=== PATIENT | female | born 1970 | race African-American/Black ===

== ENCOUNTER 2017-10-01 11:34 | Inpatient (IN) | payer MEDICARE, MEDICAID ==
[~2017-10-01] VITALS: Ht 160 cm; Wt 142.1 kg
[~2017-10-01 11:34] MED LIST: APRESOLINE10 MG ORAL; CLONIDINE0.1 MG PO; COUMADIN7.5 MG ORAL; DILTIAZEM ER300 M1 PO; DOXAZOSIN MESYLA1 MG ORAL; FLECAINIDE ACET50 M1 PO; FUROSEMIDE20 M1 ORAL; LISINOPRIL5 MG ORAL; NITROGLYCERIN0.4 MG SL
[2017-10-01 11:40] VITALS: BP 142/83
[2017-10-01] MEDS ORDERED: fentaNYL 100 mcg/2 mL IV ONE ×3 (11:45→16:15)
--- NOTE | 2017-10-01 11:53 | Emergency Room Report ---
History of Present Illness General Chief Complaint: Pain Source: Patient, EMS Present Illness HPI Patient presents with right thigh pain that began yesterday. It's been constant and worsening. She is on Coumadin. The pain is rated 10/10 at this time and a strange aching and numbness. History of sciatica and this feels different than that. She denies any trauma. She has osteoarthritis of her knee. She feels that the knee is not involved. The right side of the back is somewhat tender but doesn't seem like this is the source either. She is on Lasix and has polyuria. There is no hematuria that she's noticed. She denies any fevers or chills. No prior h/o gout. The patient also had started having some slight left sided chest pressure with the paramedics. EKG was performed that was normal. She states she had a treadmill in June which excluded CAD at this time. The patient is on Coumadin due to atrial fibrillation with mitral regurgitation. She has not had an INR checked in 8 weeks. No prior clot problems. Allergies: Coded Allergies: No Known Allergies (Unverified , 10/25/15) Patient History Past Medical History: see triage record Social History: Denies: smoking Social History Narrative at home Last Menstrual Period: 09/22/17 Now: No Reviewed Nursing Documentation: PMH: Agreed; PSxH: Agreed Nursing Documentation-PMH Hx Hypertension: Yes Hx COPD: Yes Hx Cancer: No Hx Gastrointestinal Problems: No Review of Systems All Other Systems: negative except mentioned in HPI Physical Exam Vital Signs Date Time Temp Pulse Resp B/P (MAP) Pulse Ox O2 Delivery O2 Flow Rate FiO2 10/01/17 11:29 97.6 68 16 142/83 98 Room Air 97.5 Sp02 EP Interpretation: reviewed, normal General Appearance: well appearing, no apparent distress, GCS 15, obese Head: normocephalic, atraumatic Eyes: bilateral eye normal inspection, bilateral eye PERRL, bilateral eye EOMI ENT: moist mucus membranes Neck: supple Respiratory: chest non-tender, lungs clear, normal breath sounds Cardiovascular #1: regular rate, rhythm, no edema Cardiovascular #2: 2+ radial (R) Gastrointestinal: normal inspection, normal bowel sounds, non tender, no mass, non-distended Musculoskeletal: back normal - but with tenderness R paraspinous area, no calf tenderness, pelvis stable, decreased range of motion - R hip but able to sit and stand, tender - R thigh, knee with DJD but no effusion, warmth or tenderness Neurologic: alert, oriented x3, motor strength/tone normal, DTRs symmetric, sensory intact, speech normal Psychiatric: mood/affect normal Skin: normal inspection, warm/dry Medical Decision Making Diagnostic Impression: Primary Impression: Right hip pain Additional Impressions: Gout attack Qualified Codes: M10.251 - Drug-induced gout, right hip Hyperanticoagulation Chest pain Qualified Codes: R07.9 - Chest pain, unspecified ER Course Patient presents with right thigh pain. She is on Coumadin. Differential includes DVT, spinal hematoma, hematoma in the joint, gout, muscle strain, hip strain amongst others. Depends on what her INR is whether is elevated or decreased. However she also has complaining about chest pain and needs to have evaluation with EKG, chest x-ray and labs. The complicated patient. Evaluation will include AP pelvis for the moment. If her INR is low we will perform noninvasive vascular study. If her INR is high she may have a CT of her back and hip to exclude hematoma intra-articular or spinal. Based on her exam spinal hematomas less likely. She will be treated for pain. EKG was sinus tachycardia without acute injury. Chest x-ray unremarkable. AP pelvis with inflammation in bilateral hips and some increased stool without obstruction. Labs significant for normal white count. Uric acid is elevated. INR is high. Will check CT of pelvis and lumbar spine for hematoma. Repeat fentanyl as pain not controlled. CT without hematomata. +DJD Improved but still with pain. Colchicine given. Admit tele (due to chest pain), Dr. South. Laboratory Tests Test 10/01/17 11:49 10/01/17 12:01 Urine Color Pale yellow Urine Appearance Slightly cloudy Urine pH 7 (4.5-8.0) Urine Specific [place] 1.005 (1.005-1.035) Urine Protein Negative (NEGATIVE) Urine Glucose (UA) Negative (NEGATIVE) Urine Ketones Negative (NEGATIVE) Urine Occult Blood Negative (NEGATIVE) Urine Nitrite Negative (NEGATIVE) Urine Bilirubin Negative (NEGATIVE) Urine Urobilinogen Normal MG/DL (0.0-1.0) Urine Leukocyte Esterase 1+ (NEGATIVE) H Urine RBC 0-2 /HPF (0 - 2) Urine WBC 0-2 /HPF (0 - 2) Urine Squamous Epithelial Cells Occasional /LPF Urine Bacteria Few /HPF (NONE) Urine Trichomonas Few /HPF (NONE) H White Blood Count 5.3 K/UL (4.8-10.8) Red Blood Count 4.99 M/UL (4.20-5.40) Hemoglobin 12.5 G/DL (12.0-16.0) Hematocrit 40.0 % (37.0-47.0) Mean Corpuscular Volume 80 FL (80-99) Mean Corpuscular Hemoglobin 25.0 PG (27.0-31.0) L Mean Corpuscular Hemoglobin Concent 31.3 G/DL (32.0-36.0) L Red Cell Distribution Width 17.4 % (11.6-14.8) H Platelet Count 255 K/UL (150-450) Mean Platelet Volume 9.2 FL (6.5-10.1) Neutrophils (%) (Auto) 45.1 % (45.0-75.0) Lymphocytes (%) (Auto) 40.5 % (20.0-45.0) Monocytes (%) (Auto) 10.8 % (1.0-10.0) H Eosinophils (%) (Auto) 2.6 % (0.0-3.0) Basophils (%) (Auto) 1.1 % (0.0-2.0) Erythrocyte Sedimentation Rate 57 MM/HR (0-20) H Prothrombin Time 47.5 SEC (9.30-11.50) H Prothrombin Time INR 4.9 (0.9-1.1) H Sodium Level 139 MMOL/L (136-145) Potassium Level 3.5 MMOL/L (3.5-5.1) Chloride Level 104 MMOL/L (98-107) Carbon Dioxide Level 27 MMOL/L (21-32) Anion Gap 8 mmol/L (5-15) Blood Urea Nitrogen 17 mg/dL (7-18) Creatinine 1.3 MG/DL (0.55-1.30) Estimate Glomerular Filtration Rate 53.2 mL/min (>60) Glucose Level 97 MG/DL (74-106) Uric Acid 8.1 MG/DL (2.6-7.2) H Calcium Level 8.2 MG/DL (8.5-10.1) L Total Bilirubin 0.2 MG/DL (0.2-1.0) Aspartate Amino Transferase (AST) 13 U/L (15-37) L Alanine Aminotransferase (ALT) 19 U/L (12-78) Alkaline Phosphatase 86 U/L (46-116) Total Creatine Kinase 71 U/L (26-308) Troponin I 0.000 ng/mL (0.000-0.056) Pro-B-Type Natriuretic Peptide 191 pg/mL (0-125) H Total Protein 7.6 G/DL (6.4-8.2) Albumin 2.8 G/DL (3.4-5.0) L Globulin 4.8 g/dL Albumin/Globulin Ratio 0.6 (1.0-2.7) L EKG Diagnostic Results Rate: bradycardiac Rhythm: NSR ST Segments: no acute changes Rhythm Strip Diag. Results EP Interpretation: yes Rhythm: no PVC's, no ectopy, other - Bradycardia Chest X-Ray Diagnostic Results Chest X-Ray Diagnostic Results : Chest X-Ray Ordered: Yes # of Views/Limited/Complete: 1 View Indication: Chest Pain EP Interpretation: Yes Interpretation: no consolidation, no effusion, no pneumothorax Impression: No acute disease Electronically Signed by: Electronically signed by Jordy Smith MD Other X-Ray Diagnostic Results Other X-Ray Diagnostic Results : X-Ray ordered: AP pelvis # of Views/Limited Vs Complete: 1 View Indication: Pain Interpretation: no dislocation, no soft tissue swelling, no fractures, nonspecific bowel gas Impression: Other Electronically Signed by: Electronically signed by Jordy Smith MD CT/MRI/US Diagnostic Results CT/MRI/US Diagnostic Results #1: Imaging Test Ordered: CT pelvis Impression Findings: The study is degraded on the basis of large body habitus and motion. The visualized portion of the intrapelvic contents shows no evidence of a retroperitoneal hematoma. There may be a small amount of free fluid in the pelvis which is not for certain but may be acceptable given age and sex of the patient. Uterus noted. The subcutaneous fat and visualized part of the lower abdominal muscles and musculoskeletal structures about the hip and pelvis appear symmetric and unremarkable otherwise. The L5-S1 facets appear asymmetric , prominent and with vacuum phenomena indicative of arthropathy. Vacuum phenomena and sclerosis/osteophyte formation of the sacroiliac joints also noted. Mild osteophyte formation involving the hip joints noted bilaterally. There is no acute fracture identified. There is no malalignment identified. IMPRESSION: No evidence of acute injury. No evidence of hematoma. CT/MRI/US Diagnostic Results #2: Imaging Test Ordered: CT LS spine Impression Findings: There is severe motion abnormality in the lower part of the lumbar spine limiting evaluation. There is no obvious fracture or malalignment. There is no hematoma identified. There is mild osteophyte formation and vacuum phenomenon involving the sacroiliac joints. Hypertrophied facets noted in the lower lumbar spine. IMPRESSION: Limited evaluation due to motion. No evidence of hematoma or acute injury. Mild facet arthropathy in the lower lumbar spine Last Vital Signs Date Time Temp Pulse Resp B/P (MAP) Pulse Ox O2 Delivery O2 Flow Rate FiO2 10/01/17 22:17 97.7 10/01/17 21:00 131/73 10/01/17 16:35 55 19 96 Room Air 55 Status: improved Disposition: ADMITTED INPATIENT Condition: Serious Jordy Smith M.D. Oct 01, 2017 11:53
[2017-10-01 12:17] LABS: BASOPHILS % (AUTO) 1.1 % (0.0-2.0); EOSINOPHILS % (AUTO) 2.6 % (0.0-3.0); HEMOGLOBIN 12.5 G/DL (12.0-16.0); LYMPHOCYTES % (AUTO) 40.5 % (20.0-45.0); MEAN CORPUSCULAR VOLUME 80 FL (80-99); MONOCYTES % (AUTO) 10.8 % (1.0-10.0); NEUTROPHILS % (AUTO) 45.1 % (45.0-75.0); PLATELET COUNT 255 K/UL (150-450); RED BLOOD COUNT 4.99 M/UL (4.20-5.40); RED CELL DISTRIBUTION WIDTH 17.4 % (11.6-14.8); WHITE BLOOD COUNT 5.3 K/UL (4.8-10.8)
[2017-10-01 12:22] LABS: BILIRUBIN, URINE NEGATIVE (NEGATIVE); COLOR,URINE PALE YELLOW; GLUCOSE, URINE (UA) NEGATIVE (NEGATIVE); KETONES,URINE NEGATIVE (NEGATIVE); LEUKOCYTE ESTERASE ,URINE 1+ (NEGATIVE); NITRITE,URINE NEGATIVE (NEGATIVE); PH,URINE 7 (4.5-8.0); PROTEIN,URINE NEGATIVE (NEGATIVE); UROBILINOGEN,URINE NORMAL MG/DL (0.0-1.0)
[2017-10-01 12:33] LABS: APPEARANCE,URINE SLIGHTLY CLOUDY
[2017-10-01 12:34] LABS: ANION GAP 8 mmol/L (5-15); BLOOD UREA NITROGEN 17 mg/dL (7-18); CALCIUM 8.2 MG/DL (8.5-10.1); CARBON DIOXIDE 27 MMOL/L (21-32); CHLORIDE 104 MMOL/L (98-107); CREATININE 1.3 MG/DL (0.55-1.30); POTASSIUM 3.5 MMOL/L (3.5-5.1); SODIUM 139 MMOL/L (136-145)
[2017-10-01 12:40] LABS: INR 4.9 (0.9-1.1)
[2017-10-01 12:45] LABS: ALANINE AMINOTRANSFERASE 19 U/L (12-78); ALBUMIN 2.8 G/DL (3.4-5.0); ALBUMIN/GLOBULIN RATIO 0.6 (1.0-2.7); ALKALINE PHOSPHATASE 86 U/L (46-116); ASPARTATE AMINO TRANSFERASE 13 U/L (15-37); BILIRUBIN,TOTAL 0.2 MG/DL (0.2-1.0); CREATINE KINASE 71 U/L (26-308)
[2017-10-01] MEDS ORDERED: WARFARIN SODIUM5 MG ORAL (12:57)
[2017-10-01] MEDS ORDERED: FUROSEMIDE80 M1 ORAL (12:57)
[2017-10-01] MEDS ORDERED: Isovue-300 100ml vial INJ PRN (13:15)
[2017-10-01 14:58] VITALS: BP 107/45
[2017-10-01] MEDS ORDERED: WARFARIN SODIUM10 MG ORAL (15:03)
--- NOTE | 2017-10-01 15:29 | Diagnostic Imaging Report ---
Indication: pain Pelvic trauma and pain Findings: Single AP view of the pelvis was performed. No acute fracture is identified. Bilateral hips and sacroiliac joints appear symmetric.There is no malalignment. Soft tissues are unremarkable. Impression: No acute findings.
--- NOTE | 2017-10-01 15:30 | Diagnostic Imaging Report ---
Indication: Chest pain Comparison: 10/25/2015 A single view chest radiograph was obtained. Findings: Cardiomediastinal appearance is within normal limits for age. Pulmonary vascularity is appropriate. The diaphragmatic contour is smooth and costophrenic angles are sharp. No pleural effusions are identified. The bones are unremarkable. Impression: No acute findings
--- NOTE | 2017-10-01 16:11 | Diagnostic Imaging Report ---
Indication: Back pain Technique: Continuous helical transaxial imaging of the lumbar spine was obtained from the lung bases to the pubic symphysis. No IV contrast was administered. Coronal 2-D reformats were also obtained. Study obtained in a Siemens sensation [address] Total Dose length Product (DLP): [address] Dose Index Volume (CTDIvol): 0.25, 33.6 mGy Comparison: None Findings: There is severe motion abnormality in the lower part of the lumbar spine limiting evaluation. There is no obvious fracture or malalignment. There is no hematoma identified. There is mild osteophyte formation and vacuum phenomenon involving the sacroiliac joints. Hypertrophied facets noted in the lower lumbar spine. IMPRESSION: Limited evaluation due to motion. No evidence of hematoma or acute injury. Mild facet arthropathy in the lower lumbar spine The CT scanner at [facility] is accredited by the [employer] and the scans are performed using dose optimization techniques as appropriate to a performed exam including Automatic Exposure control.
--- NOTE | 2017-10-01 16:17 | Diagnostic Imaging Report ---
Indication: Pelvic pain. Clinical concern for hematoma due to elevated INR. Technique: Continuous helical transaxial imaging of the pelvis was obtained from the iliac crest to the pubic symphysis. Coronal 2-D reformats were also obtained. Study obtained in a Siemens sensation [address] Intravenous non-ionic contrast was administered. Total Dose length Product (DLP): [address] Dose Index Volume (CTDIvol): 0.25, 32.16 mGy Comparison: None Findings: The study is degraded on the basis of large body habitus and motion. The visualized portion of the intrapelvic contents shows no evidence of a retroperitoneal hematoma. There may be a small amount of free fluid in the pelvis which is not for certain but may be acceptable given age and sex of the patient. Uterus noted. The subcutaneous fat and visualized part of the lower abdominal muscles and musculoskeletal structures about the hip and pelvis appear symmetric and unremarkable otherwise. The L5-S1 facets appear asymmetric, prominent and with vacuum phenomena indicative of arthropathy. Vacuum phenomena and sclerosis/osteophyte formation of the sacroiliac joints also noted. Mild osteophyte formation involving the hip joints noted bilaterally. There is no acute fracture identified. There is no malalignment identified. IMPRESSION: No evidence of acute injury. No evidence of hematoma. Significantly degraded study due to motion and large body habitus-related artifacts. Other incidental findings as above The CT scanner at [facility] is accredited by the [employer] and the scans are performed using dose optimization techniques as appropriate to a performed exam including Automatic Exposure control.
[2017-10-01 16:27] VITALS: BP 110/54
[2017-10-01 16:35] VITALS: BP 128/77
[2017-10-01] MEDS ORDERED: LORazepam Inj 2mg/ml 1ml IV PRN (18:30)
[2017-10-01] MEDS ORDERED: Mylanta II UD 30ml ORAL PRN (18:30)
[2017-10-01] MEDS ORDERED: Zolpidem 5mg tab ORAL PRN (18:30)
[2017-10-01] MEDS: Morphine Sulfate 2mg/ml Inj IVP PRN ×2 (18:59→23:35)
[2017-10-01 20:00] VITALS: BP 131/91
[2017-10-01] MEDS: HydrALAZINE 10mg Tab ORAL SCH (21:00)
[2017-10-01] MEDS: Miralax 17gm pkt ORAL PRN (23:35)
[2017-10-02] VITALS: BP 127/88
[2017-10-02] MEDS: Morphine Sulfate 2mg/ml Inj IVP PRN ×3 (03:41→13:15)
[2017-10-02 04:00] VITALS: BP 114/67
[2017-10-02 08:00] VITALS: BP 133/73
[2017-10-02] MEDS: Doxazosin 1mg Tab ORAL SCH (08:33)
[2017-10-02] MEDS: HydrALAZINE 10mg Tab ORAL SCH (08:34)
--- NOTE | 2017-10-02 11:21 | History and Physical ---
History of Present Illness General Date patient seen: Oct 02, 2017 Reason for Hospitalization: Pain Present Illness HPI 46 year old with hx of CHF, A-fib, morbid obesity presents with right thigh pain that began yesterday. The patient also had started having some slight left sided chest pressure with the paramedics. Pt is admitted to telemetry for further treatment. Allergies: Coded Allergies: No Known Allergies (Unverified , 10/25/15) Medication History Scheduled Diltiazem HCl (Diltiazem ER), 150 MG PO BID, (Reported) Doxazosin Mesylate* (Doxazosin Mesylate*), 1 MG ORAL DAILY, (Reported) Flecainide Acetate (Flecainide Acetate), 50 MG PO BID, (Reported) Furosemide* (Lasix*), 40 MG ORAL DAILY, (Reported) Furosemide* (Lasix*), 80 MG ORAL TWICE A WEEK, (Reported) Hydralazine HCl (Hydralazine HCl), 10 MG ORAL BID, (Reported) Lisinopril (Lisinopril*), 5 MG ORAL BID, (Reported) Warfarin Sod* (Warfarin Sod*), 5 MG ORAL ONCE A WEEK, (Reported) Warfarin Sod* (Warfarin Sod*), 10 MG ORAL DAILY, (Reported) Miscellaneous Medications Clonidine HCl (Clonidine HCl), Unknown Dose PO, (Reported) Nitroglycerin (Nitroglycerin), Unknown Dose SL, (Reported) Patient History Healthcare decision maker Resuscitation status Full Code Advanced Directive on File No Past Medical/Surgical History Past Medical/Surgical History: (1) Chronic anticoagulation (2) History of atrial fibrillation (3) Morbid obesity with BMI of 50.0-59.9, adult Review of Systems Hematologic/Lymphatic: Reports: no symptoms All Other Systems: negative except mentioned in HPI Physical Exam General Appearance: WD/WN, no apparent distress Lines, tubes and drains: peripheral HEENT: normocephalic, atraumatic Neck: non-tender, normal alignment Respiratory/Chest: chest wall non-tender, lungs clear, normal breath sounds Cardiovascular/Chest: normal peripheral pulses, normal rate Abdomen: normal bowel sounds Last 24 Hour Vital Signs Date Time Temp Pulse Resp B/P (MAP) Pulse Ox O2 Delivery O2 Flow Rate FiO2 10/02/17 08:34 131/88 10/02/17 08:00 97.1 65 18 133/73 95 Bi-pap 97.1 65 10/02/17 08:00 69 10/02/17 04:50 59 15 97 Facial 30 10/02/17 04:00 52 10/02/17 04:00 96.4 60 14 114/67 100 Bi-pap 96.4 60 10/02/17 03:54 63 17 99 Facial 30 10/02/17 02:21 60 10/02/17 01:24 60 16 98 Facial 30 10/02/17 00:08 68 23 Bi-pap 30 10/02/17 00:00 98.5 88 16 127/88 98 Bi-pap 98.5 88 10/01/17 23:30 68 23 98 Facial 30 10/01/17 22:17 97.7 10/01/17 21:00 131/73 10/01/17 20:00 98.8 96 20 131/91 100 Bi-pap 98.8 96 10/01/17 20:00 78 10/01/17 16:35 97.7 55 19 128/77 96 Room Air 97.7 55 10/01/17 16:30 98.6 60 20 110/54 100 Room Air 98.6 10/01/17 16:27 98.6 60 20 110/54 100 Room Air 98.6 10/01/17 16:14 98.0 10/01/17 14:58 98.0 59 18 107/45 98 Room Air 98.0 10/01/17 14:05 97.5 10/01/17 13:18 97.5 10/01/17 12:35 97.5 10/01/17 12:05 97.5 10/01/17 11:40 97.5 72 16 142/83 98 Room Air 97.5 10/01/17 11:29 97.6 68 16 142/83 98 Room Air 97.5 Intake and Output 10/01/17 10/02/17 19:00 07:00 Intake Total 350 ml Output Total 0 ml Balance 350 ml Other 350 ml Output Urine Total 0 ml # Voids 2 1 Laboratory Tests Test 10/01/17 11:49 10/01/17 12:01 Urine Color Pale yellow Urine Appearance Slightly cloudy Urine pH 7 (4.5-8.0) Urine Specific [place] 1.005 (1.005-1.035) Urine Protein Negative (NEGATIVE) Urine Glucose (UA) Negative (NEGATIVE) Urine Ketones Negative (NEGATIVE) Urine Occult Blood Negative (NEGATIVE) Urine Nitrite Negative (NEGATIVE) Urine Bilirubin Negative (NEGATIVE) Urine Urobilinogen Normal MG/DL (0.0-1.0) Urine Leukocyte Esterase 1+ (NEGATIVE) H Urine RBC 0-2 /HPF (0 - 2) Urine WBC 0-2 /HPF (0 - 2) Urine Squamous Epithelial Cells Occasional /LPF Urine Bacteria Few /HPF (NONE) Urine Trichomonas Few /HPF (NONE) H White Blood Count 5.3 K/UL (4.8-10.8) Red Blood Count 4.99 M/UL (4.20-5.40) Hemoglobin 12.5 G/DL (12.0-16.0) Hematocrit 40.0 % (37.0-47.0) Mean Corpuscular Volume 80 FL (80-99) Mean Corpuscular Hemoglobin 25.0 PG (27.0-31.0) L Mean Corpuscular Hemoglobin Concent 31.3 G/DL (32.0-36.0) L Red Cell Distribution Width 17.4 % (11.6-14.8) H Platelet Count 255 K/UL (150-450) Mean Platelet Volume 9.2 FL (6.5-10.1) Neutrophils (%) (Auto) 45.1 % (45.0-75.0) Lymphocytes (%) (Auto) 40.5 % (20.0-45.0) Monocytes (%) (Auto) 10.8 % (1.0-10.0) H Eosinophils (%) (Auto) 2.6 % (0.0-3.0) Basophils (%) (Auto) 1.1 % (0.0-2.0) Erythrocyte Sedimentation Rate 57 MM/HR (0-20) H Prothrombin Time 47.5 SEC (9.30-11.50) H Prothromb Time International Ratio 4.9 (0.9-1.1) H Sodium Level 139 MMOL/L (136-145) Potassium Level 3.5 MMOL/L (3.5-5.1) Chloride Level 104 MMOL/L (98-107) Carbon Dioxide Level 27 MMOL/L (21-32) Anion Gap 8 mmol/L (5-15) Blood Urea Nitrogen 17 mg/dL (7-18) Creatinine 1.3 MG/DL (0.55-1.30) Estimat Glomerular Filtration Rate 53.2 mL/min (>60) Glucose Level 97 MG/DL (74-106) Uric Acid 8.1 MG/DL (2.6-7.2) H Calcium Level 8.2 MG/DL (8.5-10.1) L Total Bilirubin 0.2 MG/DL (0.2-1.0) Aspartate Amino Transf (AST/SGOT) 13 U/L (15-37) L Alanine Aminotransferase (ALT/SGPT) 19 U/L (12-78) Alkaline Phosphatase 86 U/L (46-116) Total Creatine Kinase 71 U/L (26-308) Troponin I 0.000 ng/mL (0.000-0.056) Pro-B-Type Natriuretic Peptide 191 pg/mL (0-125) H Total Protein 7.6 G/DL (6.4-8.2) Albumin 2.8 G/DL (3.4-5.0) L Globulin 4.8 g/dL Albumin/Globulin Ratio 0.6 (1.0-2.7) L Height (Feet): 5 Height (Inches): 3.00 Weight (Pounds): 313 Medications Current Medications Medications (Trade) Dose Ordered Sig/Latrice Route PRN Reason Start Time Stop Time Status Last Admin Dose Admin Acetaminophen (Tylenol) 650 mg Q4H PRN ORAL fever (temp>100.5F) 10/01/17 18:30 10/31/17 18:29 10/01/17 22:17 Al Hydroxide/Mg Hydroxide (Mylanta II) 30 ml Q6H PRN ORAL dyspepsia 10/01/17 18:30 10/31/17 18:29 Dextrose (Dextrose 50%) 25 ml STAT PRN IV Hypoglycemia 10/01/17 18:30 10/31/17 18:29 Dextrose (Dextrose 50%) 50 ml STAT PRN IV Hypoglycemia 10/01/17 18:45 10/31/17 18:44 Doxazosin Mesylate (Cardura) 1 mg DAILY ORAL 10/02/17 09:00 11/01/17 08:59 10/02/17 08:33 Furosemide (Lasix) 40 mg DAILY ORAL 10/02/17 09:00 11/01/17 08:59 10/02/17 08:34 Hydralazine HCl (Apresoline) 10 mg Q12HR ORAL 10/01/17 21:00 10/31/17 20:59 10/02/17 08:34 Iopamidol (Isovue-300 100ml) 100 ml NOW PRN INJ Radiology Procedure 10/01/17 13:15 10/03/17 13:07 Lorazepam (Ativan 2mg/ml 1ml) 0.5 mg Q4H PRN IV For Anxiety 10/01/17 18:30 10/08/17 18:29 Morphine Sulfate (Morphine Sulfate) 1 mg Q4H PRN IVP For Pain 10/01/17 18:30 10/08/17 18:29 10/02/17 08:36 Ondansetron HCl (Zofran) 4 mg Q6H PRN IVP Nausea & Vomiting 10/01/17 18:30 10/31/17 18:29 10/02/17 03:41 Polyethylene Glycol (Miralax) 17 gm HSPRN PRN ORAL Constipation 10/01/17 18:30 10/31/17 18:29 10/01/17 23:35 Sodium Chloride 1,000 ml @ 50 mls/hr Q20H IV 10/01/17 21:45 10/31/17 21:44 10/01/17 21:45 Warfarin Sodium (Coumadin per pharmacy) 1 ea DAILY PRN MISC Per rx protocol 10/01/17 18:30 10/31/17 18:29 Zolpidem Tartrate (Ambien) 5 mg HSPRN PRN ORAL Insomnia 10/01/17 18:30 10/08/17 18:29 Assessment/Plan Problem List: (1) ACS (acute coronary syndrome) ICD Codes: I24.9 - Acute ischemic heart disease, unspecified SNOMED: 475203612 (2) History of atrial fibrillation ICD Codes: Z86.79 - Personal history of other diseases of the circulatory system SNOMED: 772904098 (3) GERD (gastroesophageal reflux disease) ICD Codes: K21.9 - Gastro-esophageal reflux disease without esophagitis SNOMED: 903244969 (4) Costochondritis ICD Codes: M94.0 - Chondrocostal junction syndrome [[place]] SNOMED: 36749500 (5) Morbid obesity with BMI of 50.0-59.9, adult ICD Codes: E66.01 - Morbid (severe) obesity due to excess calories; Z68.43 - Body mass index (BMI) 50-59.9 , adult SNOMED: 236650016 (6) Chronic anticoagulation ICD Codes: Z79.01 - group home (current) use of anticoagulants SNOMED: 472911904 Assessment/Plan serial ekg, troponin echo venous doppler cardiology to see continue pts cardiac meds. Mg South MD Oct 02, 2017 11:21
[2017-10-02 12:00] VITALS: BP 123/73
[2017-10-02 12:18] LABS: BASOPHILS % (AUTO) 0.9 % (0.0-2.0); EOSINOPHILS % (AUTO) 3.5 % (0.0-3.0); HEMATOCRIT 37.5 % (37.0-47.0); HEMOGLOBIN 11.4 G/DL (12.0-16.0); LYMPHOCYTES % (AUTO) 42.5 % (20.0-45.0); MEAN CORPUSCULAR VOLUME 80 FL (80-99); MONOCYTES % (AUTO) 11.6 % (1.0-10.0); NEUTROPHILS % (AUTO) 41.4 % (45.0-75.0); PLATELET COUNT 240 K/UL (150-450); RED CELL DISTRIBUTION WIDTH 17.7 % (11.6-14.8); WHITE BLOOD COUNT 5.7 K/UL (4.8-10.8)
[2017-10-02 12:33] LABS: INR 4.5 (0.9-1.1)
--- NOTE | 2017-10-02 12:38 | Consultation ---
History of Present Illness General Date patient seen: Oct 02, 2017 Time patient seen: 12:32 Chief Complaint: Pain Present Illness HPI BIBA due to 10/10 R leg pain with tingling and numbness radiating to the left arm with numbness noted as well. Patient also with chest pressure. Patient has a hx of CHF, A-fib, morbid obesity. Troponin normal, CXR clear. Allergies: Coded Allergies: No Known Allergies (Unverified , 10/25/15) Medication History Scheduled Diltiazem HCl (Diltiazem ER), 150 MG PO BID, (Reported) Doxazosin Mesylate* (Doxazosin Mesylate*), 1 MG ORAL DAILY, (Reported) Flecainide Acetate (Flecainide Acetate), 50 MG PO BID, (Reported) Furosemide* (Lasix*), 40 MG ORAL DAILY, (Reported) Furosemide* (Lasix*), 80 MG ORAL TWICE A WEEK, (Reported) Hydralazine HCl (Hydralazine HCl), 10 MG ORAL BID, (Reported) Lisinopril (Lisinopril*), 5 MG ORAL BID, (Reported) Warfarin Sod* (Warfarin Sod*), 5 MG ORAL ONCE A WEEK, (Reported) Warfarin Sod* (Warfarin Sod*), 10 MG ORAL DAILY, (Reported) Miscellaneous Medications Clonidine HCl (Clonidine HCl), Unknown Dose PO, (Reported) Nitroglycerin (Nitroglycerin), Unknown Dose SL, (Reported) Patient History Healthcare decision maker Resuscitation status Full Code Advanced Directive on File No Review of Systems Constitutional: Reports: no symptoms Eye: Reports: no symptoms ENT: Reports: no symptoms Respiratory: Reports: no symptoms Cardiovascular: Reports: chest pain Gastrointestinal: Reports: no symptoms Genitourinary: Reports: no symptoms Musculoskeletal: Reports: no symptoms Skin: Reports: no symptoms Psychiatric: Reports: no symptoms Neurological: Reports: no symptoms Endocrine: Reports: no symptoms Hematologic/Lymphatic: Reports: no symptoms Physical Exam General Appearance: no apparent distress Lines, tubes and drains: peripheral HEENT: normocephalic Neck: non-tender Respiratory/Chest: chest wall non-tender, lungs clear Cardiovascular/Chest: normal peripheral pulses Abdomen: normal bowel sounds Extremities: normal range of motion, non-tender Skin Exam: normal pigmentation 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 Last 24 Hour Vital Signs Date Time Temp Pulse Resp B/P (MAP) Pulse Ox O2 Delivery O2 Flow Rate FiO2 10/02/17 12:00 97.2 64 18 123/73 98 Bi-pap 97.2 64 10/02/17 08:34 131/88 10/02/17 08:00 97.1 65 18 133/73 95 Bi-pap 97.1 65 10/02/17 08:00 69 10/02/17 04:50 59 15 97 Facial 30 10/02/17 04:00 52 10/02/17 04:00 96.4 60 14 114/67 100 Bi-pap 96.4 60 10/02/17 03:54 63 17 99 Facial 30 10/02/17 02:21 60 10/02/17 01:24 60 16 98 Facial 30 10/02/17 00:08 68 23 Bi-pap 30 10/02/17 00:00 98.5 88 16 127/88 98 Bi-pap 98.5 88 10/01/17 23:30 68 23 98 Facial 30 10/01/17 22:17 97.7 10/01/17 21:00 131/73 10/01/17 20:00 98.8 96 20 131/91 100 Bi-pap 98.8 96 10/01/17 20:00 78 10/01/17 16:35 97.7 55 19 128/77 96 Room Air 97.7 55 10/01/17 16:30 98.6 60 20 110/54 100 Room Air 98.6 10/01/17 16:27 98.6 60 20 110/54 100 Room Air 98.6 10/01/17 16:14 98.0 10/01/17 14:58 98.0 59 18 107/45 98 Room Air 98.0 10/01/17 14:05 97.5 10/01/17 13:18 97.5 10/01/17 12:35 97.5 Intake and Output 10/01/17 10/02/17 19:00 07:00 Intake Total 350 ml Output Total 0 ml Balance 350 ml Other 350 ml Output Urine Total 0 ml # Voids 2 1 Laboratory Tests Test 10/02/17 11:50 White Blood Count 5.7 K/UL (4.8-10.8) Red Blood Count 4.70 M/UL (4.20-5.40) Hemoglobin 11.4 G/DL (12.0-16.0) L Hematocrit 37.5 % (37.0-47.0) Mean Corpuscular Volume 80 FL (80-99) Mean Corpuscular Hemoglobin 24.3 PG (27.0-31.0) L Mean Corpuscular Hemoglobin Concent 30.4 G/DL (32.0-36.0) L Red Cell Distribution Width 17.7 % (11.6-14.8) H Platelet Count 240 K/UL (150-450) Mean Platelet Volume 8.8 FL (6.5-10.1) Neutrophils (%) (Auto) 41.4 % (45.0-75.0) L Lymphocytes (%) (Auto) 42.5 % (20.0-45.0) Monocytes (%) (Auto) 11.6 % (1.0-10.0) H Eosinophils (%) (Auto) 3.5 % (0.0-3.0) H Basophils (%) (Auto) 0.9 % (0.0-2.0) Prothrombin Time Pending Prothromb Time International Ratio Pending Sodium Level Pending Potassium Level Pending Chloride Level Pending Carbon Dioxide Level Pending Blood Urea Nitrogen Pending Creatinine Pending Estimat Glomerular Filtration Rate Pending Glucose Level Pending Calcium Level Pending Total Bilirubin Pending Aspartate Amino Transf (AST/SGOT) Pending Alanine Aminotransferase (ALT/SGPT) Pending Alkaline Phosphatase Pending Total Protein Pending Albumin Pending Globulin Pending Triglycerides Level Pending Cholesterol Level Pending LDL Cholesterol Pending HDL Cholesterol Pending Cholesterol/HDL Ratio Pending Thyroid Stimulating Hormone (TSH) Pending Height (Feet): 5 Height (Inches): 3.00 Weight (Pounds): 313 Medications Current Medications Medications (Trade) Dose Ordered Sig/Latrice Route PRN Reason Start Time Stop Time Status Last Admin Dose Admin Acetaminophen (Tylenol) 650 mg Q4H PRN ORAL fever (temp>100.5F) 10/01/17 18:30 10/31/17 18:29 10/01/17 22:17 Al Hydroxide/Mg Hydroxide (Mylanta II) 30 ml Q6H PRN ORAL dyspepsia 10/01/17 18:30 10/31/17 18:29 Dextrose (Dextrose 50%) 25 ml STAT PRN IV Hypoglycemia 10/01/17 18:30 82/18 18:29 Dextrose (Dextrose 50%) 50 ml STAT PRN IV Hypoglycemia 10/01/17 18:45 10/31/17 18:44 Diltiazem HCl (Cardizem) 90 mg EVERY 8 HOURS ORAL 10/02/17 14:00 11/01/17 13:59 Doxazosin Mesylate (Cardura) 1 mg DAILY ORAL 10/02/17 09:00 11/01/17 08:59 10/02/17 08:33 Flecainide Acetate (Tambocor) 100 mg Q12HR ORAL 10/02/17 21:00 11/01/17 20:59 Furosemide (Lasix) 40 mg DAILY ORAL 10/02/17 09:00 11/01/17 08:59 10/02/17 08:34 Hydralazine HCl (Apresoline) 200 mg Q12HR ORAL 10/02/17 21:00 10/31/17 20:59 Iopamidol (Isovue-300 100ml) 100 ml NOW PRN INJ Radiology Procedure 10/01/17 13:15 10/03/17 13:07 Lisinopril (Prinivil) 40 mg DAILY ORAL 10/03/17 09:00 11/02/17 08:59 Lorazepam (Ativan 2mg/ml 1ml) 0.5 mg Q4H PRN IV For Anxiety 10/01/17 18:30 10/08/17 18:29 Morphine Sulfate (Morphine Sulfate) 1 mg Q4H PRN IVP For Pain 10/01/17 18:30 10/08/17 18:29 10/02/17 08:36 Ondansetron HCl (Zofran) 4 mg Q6H PRN IVP Nausea & Vomiting 10/01/17 18:30 10/31/17 18:29 10/02/17 03:41 Polyethylene Glycol (Miralax) 17 gm HSPRN PRN ORAL Constipation 10/01/17 18:30 10/31/17 18:29 10/01/17 23:35 Sodium Chloride 1,000 ml @ 50 mls/hr Q20H IV 10/01/17 21:45 10/31/17 21:44 10/01/17 21:45 Warfarin Sodium (Coumadin per pharmacy) 1 ea DAILY PRN MISC Per rx protocol 10/01/17 18:30 10/31/17 18:29 Zolpidem Tartrate (Ambien) 5 mg HSPRN PRN ORAL Insomnia 10/01/17 18:30 10/08/17 18:29 Assessment/Plan Status: stable Assessment/Plan Assessment/Plan Problem List: (1) ACS (acute coronary syndrome) ICD Codes: I24.9 - Acute ischemic heart disease, unspecified SNOMED: 612570162 (2) History of atrial fibrillation ICD Codes: Z86.79 - Personal history of other diseases of the circulatory system SNOMED: 480134776 (3) GERD (gastroesophageal reflux disease) ICD Codes: K21.9 - Gastro-esophageal reflux disease without esophagitis SNOMED: 482393666 (4) Costochondritis ICD Codes: M94.0 - Chondrocostal junction syndrome [Tietze] SNOMED: 09221277 (5) Morbid obesity with BMI of 50.0-59.9, adult ICD Codes: E66.01 - Morbid (severe) obesity due to excess calories; Z68.43 - Body mass index (BMI) 50-59.9 , adult SNOMED: 609126323 (6) Chronic anticoagulation ICD Codes: Z79.01 - [facility] (current) use of anticoagulants SNOMED: 071910825 Recommendations/Plan 1) Obtain 2D echo 2) Serial EKG/Troponin 3) Aspirin 4) Statin 5) nitro prn CP 6) No evidence of ACS at this time 7) outpatient stress test 8) All labs and imaging reviewed 9) continue coumain for AFIB 10) Continue maintenance lasix 11) maintain current medications Jordy Dean M.D. Oct 02, 2017 12:38
[2017-10-02 12:46] LABS: ALANINE AMINOTRANSFERASE 18 U/L (12-78); ALBUMIN 2.7 G/DL (3.4-5.0); ALBUMIN/GLOBULIN RATIO 0.6 (1.0-2.7); ALKALINE PHOSPHATASE 88 U/L (46-116); ANION GAP 6 mmol/L (5-15); ASPARTATE AMINO TRANSFERASE 14 U/L (15-37); BILIRUBIN,TOTAL 0.2 MG/DL (0.2-1.0); BLOOD UREA NITROGEN 20 mg/dL (7-18); CALCIUM 8.1 MG/DL (8.5-10.1); CARBON DIOXIDE 26 MMOL/L (21-32); CHLORIDE 105 MMOL/L (98-107); CHOLESTEROL 180 MG/DL (< 200); CREATININE 1.3 MG/DL (0.55-1.30); HDL CHOLESTEROL 39 MG/DL (40-60); POTASSIUM 3.7 MMOL/L (3.5-5.1); SODIUM 137 MMOL/L (136-145); TRIGLYCERIDES 171 MG/DL (30-150)
[2017-10-02] MEDS: dilTIAZem HCl 90mg tab ORAL SCH ×2 (13:14→21:34)
[2017-10-02 15:37] VITALS: BP 131/78
[2017-10-02 20:00] VITALS: BP 130/83
[2017-10-02] MEDS: HydrALAZINE 50mg tab ORAL SCH (21:33)
[2017-10-02] MEDS: Morphine Sulfate 4mg/ml Inj IVP PRN (21:34)
[2017-10-02] MEDS: Miralax 17gm pkt ORAL PRN (21:47)
[2017-10-03] VITALS: BP 134/73
[2017-10-03 04:00] VITALS: BP 129/50
[2017-10-03] MEDS: Morphine Sulfate 4mg/ml Inj IVP PRN ×3 (06:48→22:11)
[2017-10-03] MEDS: dilTIAZem HCl 90mg tab ORAL SCH ×3 (06:48→22:11)
[2017-10-03 08:00] VITALS: BP 143/72
[2017-10-03 08:59] LABS: BASOPHILS % (AUTO) 0.7 % (0.0-2.0); EOSINOPHILS % (AUTO) 4.3 % (0.0-3.0); HEMATOCRIT 35.4 % (37.0-47.0); HEMOGLOBIN 10.8 G/DL (12.0-16.0); LYMPHOCYTES % (AUTO) 46.3 % (20.0-45.0); MEAN CORPUSCULAR VOLUME 80 FL (80-99); MONOCYTES % (AUTO) 9.1 % (1.0-10.0); NEUTROPHILS % (AUTO) 39.6 % (45.0-75.0); PLATELET COUNT 229 K/UL (150-450); RED BLOOD COUNT 4.42 M/UL (4.20-5.40); RED CELL DISTRIBUTION WIDTH 17.7 % (11.6-14.8); WHITE BLOOD COUNT 6.1 K/UL (4.8-10.8)
[2017-10-03] MEDS: HydrALAZINE 50mg tab ORAL SCH ×2 (09:02→22:12)
[2017-10-03] MEDS: Doxazosin 1mg Tab ORAL SCH (09:03)
[2017-10-03] MEDS: Lisinopril 20mg tab ORAL SCH (09:03)
[2017-10-03 09:17] LABS: ALANINE AMINOTRANSFERASE 16 U/L (12-78); ALBUMIN 2.4 G/DL (3.4-5.0); ALBUMIN/GLOBULIN RATIO 0.6 (1.0-2.7); ALKALINE PHOSPHATASE 74 U/L (46-116); ANION GAP 7 mmol/L (5-15); ASPARTATE AMINO TRANSFERASE 11 U/L (15-37); BILIRUBIN,TOTAL 0.2 MG/DL (0.2-1.0); BLOOD UREA NITROGEN 19 mg/dL (7-18); CALCIUM 7.6 MG/DL (8.5-10.1); CARBON DIOXIDE 26 MMOL/L (21-32); CHLORIDE 105 MMOL/L (98-107); CREATININE 1.3 MG/DL (0.55-1.30); POTASSIUM 3.5 MMOL/L (3.5-5.1); SODIUM 138 MMOL/L (136-145)
--- NOTE | 2017-10-03 10:16 | Diagnostic Imaging Report ---
Indication: Chest pain, dyspnea Technique: XRAY Chest 1v Comparison: 10/01/2017 Findings: Heart size and mediastinal contours are stable. There is no focal airspace consolidation, pleural effusion or pneumothorax. Osseous structures are stable. Impression: No significant interval change compared to exam 10/01/2017. No new consolidation.
--- NOTE | 2017-10-03 10:39 | Cardiology Progress Note ---
Assessment/Plan Status: stable Assessment/Plan Assessment/Plan Problem List: (1) ACS (acute coronary syndrome) ICD Codes: I24.9 - Acute ischemic heart disease, unspecified SNOMED: 845932266 (2) History of atrial fibrillation ICD Codes: Z86.79 - Personal history of other diseases of the circulatory system SNOMED: 581841218 (3) GERD (gastroesophageal reflux disease) ICD Codes: K21.9 - Gastro-esophageal reflux disease without esophagitis SNOMED: 717233669 (4) Costochondritis ICD Codes: M94.0 - Chondrocostal junction syndrome [Tietze] SNOMED: 88571984 (5) Morbid obesity with BMI of 50.0-59.9, adult ICD Codes: E66.01 - Morbid (severe) obesity due to excess calories; Z68.43 - Body mass index (BMI) 50-59.9 , adult SNOMED: 455373068 (6) Chronic anticoagulation ICD Codes: Z79.01 - [facility] (current) use of anticoagulants SNOMED: 563416271 Recommendations/Plan 1) Echocardiogram reviewed, normal LV function 2) No evidence of ACS 3) Continue aspirin 4) Continue Statin 5) nitro prn CP 6) Discussed weight loss and CPAP compliance 7) outpatient stress test 8) All labs and imaging reviewed 9) continue coumain for AFIB 10) Continue maintenance lasix 11) maintain current BP medications 12) Outpatient bariatric consult Subjective Cardiovascular: Reports: no symptoms Respiratory: Reports: no symptoms Gastrointestinal/Abdominal: Reports: no symptoms Genitourinary: Reports: no symptoms Subjective No acute events, no distress no chest pain. CXR is clear, vitals stable, Echo normal LV function Objective Last 24 Hour Vital Signs Date Time Temp Pulse Resp B/P (MAP) Pulse Ox O2 Delivery O2 Flow Rate FiO2 10/03/17 09:03 143/72 10/03/17 09:02 143/72 10/03/17 08:00 97.5 71 19 143/72 95 Room Air 97.5 71 10/03/17 07:39 65 10/03/17 06:48 51 129/50 10/03/17 05:23 94 21 10/03/17 04:00 51 10/03/17 04:00 97.2 59 17 129/50 95 97.2 59 10/03/17 03:22 64 16 95 Facial 30 10/03/17 00:47 60 17 96 Facial 30 10/03/17 00:00 97.7 67 16 134/73 95 97.7 67 10/03/17 00:00 69 10/02/17 23:33 62 18 94 Facial 30 10/02/17 22:02 60 16 95 Facial 30 10/02/17 21:34 82 130/83 10/02/17 21:33 130/83 10/02/17 20:00 98.2 82 18 130/83 94 Room Air 98.2 82 10/02/17 20:00 70 10/02/17 16:00 62 10/02/17 15:37 97.6 75 18 131/78 96 Bi-pap 97.6 75 10/02/17 13:14 64 123/73 10/02/17 12:00 68 10/02/17 12:00 97.2 64 18 123/73 98 Bi-pap 97.2 64 General Appearance: no apparent distress EENT: normal ENT inspection Neck: normal alignment Rhythm: NSR Cardiovascular: normal peripheral pulses Respiratory/Chest: chest wall non-tender Abdomen: normal bowel sounds Extremities: normal range of motion Neurologic: monotyper II-XII grossly normal Intake and Output 10/02/17 10/03/17 19:00 07:00 Intake Total 1240 ml Balance 1240 ml Intake Oral 840 ml IV Total 400 ml # Voids 3 2 Laboratory Tests Test 10/02/17 11:50 10/03/17 08:15 White Blood Count 5.7 K/UL (4.8-10.8) 6.1 K/UL (4.8-10.8) Red Blood Count 4.70 M/UL (4.20-5.40) 4.42 M/UL (4.20-5.40) Hemoglobin 11.4 G/DL (12.0-16.0) L 10.8 G/DL (12.0-16.0) L Hematocrit 37.5 % (37.0-47.0) 35.4 % (37.0-47.0) L Mean Corpuscular Volume 80 FL (80-99) 80 FL (80-99) Mean Corpuscular Hemoglobin 24.3 PG (27.0-31.0) L 24.3 PG (27.0-31.0) L Mean Corpuscular Hemoglobin Concent 30.4 G/DL (32.0-36.0) L 30.4 G/DL (32.0-36.0) L Red Cell Distribution Width 17.7 % (11.6-14.8) H 17.7 % (11.6-14.8) H Platelet Count 240 K/UL (150-450) 229 K/UL (150-450) Mean Platelet Volume 8.8 FL (6.5-10.1) 8.8 FL (6.5-10.1) Neutrophils (%) (Auto) 41.4 % (45.0-75.0) L 39.6 % (45.0-75.0) L Lymphocytes (%) (Auto) 42.5 % (20.0-45.0) 46.3 % (20.0-45.0) H Monocytes (%) (Auto) 11.6 % (1.0-10.0) H 9.1 % (1.0-10.0) Eosinophils (%) (Auto) 3.5 % (0.0-3.0) H 4.3 % (0.0-3.0) H Basophils (%) (Auto) 0.9 % (0.0-2.0) 0.7 % (0.0-2.0) Prothrombin Time 43.6 SEC (9.30-11.50) H 29.4 SEC (9.30-11.50) H Prothromb Time International Ratio 4.5 (0.9-1.1) H 3.0 (0.9-1.1) H Sodium Level 137 MMOL/L (136-145) 138 MMOL/L (136-145) Potassium Level 3.7 MMOL/L (3.5-5.1) 3.5 MMOL/L (3.5-5.1) Chloride Level 105 MMOL/L (98-107) 105 MMOL/L (98-107) Carbon Dioxide Level 26 MMOL/L (21-32) 26 MMOL/L (21-32) Anion Gap 6 mmol/L (5-15) 7 mmol/L (5-15) Blood Urea Nitrogen 20 mg/dL (7-18) H 19 mg/dL (7-18) H Creatinine 1.3 MG/DL (0.55-1.30) 1.3 MG/DL (0.55-1.30) Estimat Glomerular Filtration Rate 53.2 mL/min (>60) 53.2 mL/min (>60) Glucose Level 100 MG/DL (74-106) 138 MG/DL (74-106) H Calcium Level 8.1 MG/DL (8.5-10.1) L 7.6 MG/DL (8.5-10.1) L Total Bilirubin 0.2 MG/DL (0.2-1.0) 0.2 MG/DL (0.2-1.0) Aspartate Amino Transf (AST/SGOT) 14 U/L (15-37) L 11 U/L (15-37) L Alanine Aminotransferase (ALT/SGPT) 18 U/L (12-78) 16 U/L (12-78) Alkaline Phosphatase 88 U/L (46-116) 74 U/L (46-116) Total Protein 7.1 G/DL (6.4-8.2) 6.5 G/DL (6.4-8.2) Albumin 2.7 G/DL (3.4-5.0) L 2.4 G/DL (3.4-5.0) L Globulin 4.4 g/dL 4.1 g/dL Albumin/Globulin Ratio 0.6 (1.0-2.7) L 0.6 (1.0-2.7) L Triglycerides Level 171 MG/DL (30-150) H Cholesterol Level 180 MG/DL (< 200) LDL Cholesterol 118 mg/dL (<100) H HDL Cholesterol 39 MG/DL (40-60) L Cholesterol/HDL Ratio 4.6 (3.3-4.4) H Thyroid Stimulating Hormone (TSH) 1.428 uiU/mL (0.358-3.740) Pro-B-Type Natriuretic Peptide 198 pg/mL (0-125) H Jordy Dean M.D. Oct 03, 2017 10:39
[2017-10-03 12:00] VITALS: BP 128/73
--- NOTE | 2017-10-03 12:45 | Pulmonology Progress Note ---
Assessment/Plan Problems: (1) ACS (acute coronary syndrome) (2) History of atrial fibrillation (3) GERD (gastroesophageal reflux disease) (4) Costochondritis (5) Morbid obesity with BMI of 50.0-59.9, adult (6) Chronic anticoagulation Assessment/Plan Pain management MRI of L spine cardio to follow for chest pain symptomatic treatment Subjective ROS Limited/Unobtainable: No Constitutional: Reports: no symptoms HEENT: Repors: no symptoms Respiratory: Reports: no symptoms Allergies: Coded Allergies: No Known Allergies (Unverified , 10/25/15) Objective Last 24 Hour Vital Signs Date Time Temp Pulse Resp B/P (MAP) Pulse Ox O2 Delivery O2 Flow Rate FiO2 10/03/17 12:00 97.6 56 19 128/73 96 Room Air 97.6 56 10/03/17 09:03 143/72 10/03/17 09:02 143/72 10/03/17 08:00 97.5 71 19 143/72 95 Room Air 97.5 71 10/03/17 07:39 65 10/03/17 06:48 51 129/50 10/03/17 05:23 94 21 10/03/17 04:00 51 10/03/17 04:00 97.2 59 17 129/50 95 97.2 59 10/03/17 03:22 64 16 95 Facial 30 10/03/17 00:47 60 17 96 Facial 30 10/03/17 00:00 97.7 67 16 134/73 95 97.7 67 10/03/17 00:00 69 10/02/17 23:33 62 18 94 Facial 30 10/02/17 22:02 60 16 95 Facial 30 10/02/17 21:34 82 130/83 10/02/17 21:33 130/83 10/02/17 20:00 98.2 82 18 130/83 94 Room Air 98.2 82 10/02/17 20:00 70 10/02/17 16:00 62 10/02/17 15:37 97.6 75 18 131/78 96 Bi-pap 97.6 75 10/02/17 13:14 64 123/73 Intake and Output 10/02/17 10/03/17 19:00 07:00 Intake Total 1240 ml Balance 1240 ml Intake Oral 840 ml IV Total 400 ml # Voids 3 2 General Appearance: WD/WN HEENT: normocephalic, atraumatic Respiratory/Chest: chest wall non-tender, lungs clear Breasts: no masses Cardiovascular: normal peripheral pulses Abdomen: normal bowel sounds, soft, non tender Genitourinary: normal external genitalia Skin: no lesions Neurologic/Psychiatric: unhairer II-XII grossly normal Laboratory Tests 10/03/17 08:15: White Blood Count 6.1, Red Blood Count 4.42, Hemoglobin 10.8L, Hematocrit 35.4L , Mean Corpuscular Volume 80, Mean Corpuscular Hemoglobin 24.3L, Mean Corpuscular Hemoglobin Concent 30.4L, Red Cell Distribution Width 17.7H, Platelet Count 229, Mean Platelet Volume 8.8, Neutrophils (%) (Auto) 39.6L, Lymphocytes (%) (Auto) 46.3H, Monocytes (%) (Auto) 9.1, Eosinophils (%) (Auto) 4.3H, Basophils (%) (Auto) 0.7, Prothrombin Time 29.4H, Prothromb Time International Ratio 3.0H, Sodium Level 138, Potassium Level 3.5, Chloride Level 105, Carbon Dioxide Level 26, Anion Gap 7, Blood Urea Nitrogen 19H, Creatinine 1.3, Estimat Glomerular Filtration Rate 53.2, Glucose Level 138H, Calcium Level 7.6L, Total Bilirubin 0.2, Aspartate Amino Transf (AST/SGOT) 11L, Alanine Aminotransferase (ALT/SGPT) 16, Alkaline Phosphatase 74, Pro-B-Type Natriuretic Peptide 198H, Total Protein 6.5, Albumin 2.4L, Globulin 4.1, Albumin/Globulin Ratio 0.6L Current Medications Medications (Trade) Dose Ordered Sig/Latrice Route PRN Reason Start Time Stop Time Status Last Admin Dose Admin Acetaminophen (Tylenol) 650 mg Q4H PRN ORAL fever (temp>100.5F) 10/01/17 18:30 10/31/17 18:29 10/03/17 00:45 Al Hydroxide/Mg Hydroxide (Mylanta II) 30 ml Q6H PRN ORAL dyspepsia 10/01/17 18:30 10/31/17 18:29 Dextrose (Dextrose 50%) 25 ml STAT PRN IV Hypoglycemia 10/01/17 18:30 10/31/17 18:29 Dextrose (Dextrose 50%) 50 ml STAT PRN IV Hypoglycemia 10/01/17 18:45 10/31/17 18:44 Diltiazem HCl (Cardizem) 90 mg EVERY 8 HOURS ORAL 10/02/17 14:00 11/01/17 13:59 10/03/17 06:48 Doxazosin Mesylate (Cardura) 1 mg DAILY ORAL 10/02/17 09:00 11/01/17 08:59 10/03/17 09:03 Flecainide Acetate (Tambocor) 100 mg Q12HR ORAL 10/02/17 21:00 11/01/17 20:59 10/03/17 09:03 Furosemide (Lasix) 40 mg DAILY ORAL 10/02/17 09:00 11/01/17 08:59 10/03/17 09:04 Hydralazine HCl (Apresoline) 200 mg Q12HR ORAL 10/02/17 21:00 10/31/17 20:59 10/03/17 09:02 Lisinopril (Prinivil) 40 mg DAILY ORAL 10/03/17 09:00 11/02/17 08:59 10/03/17 09:03 Lorazepam (Ativan 2mg/ml 1ml) 0.5 mg Q4H PRN IV For Anxiety 10/01/17 18:30 10/08/17 18:29 Lorazepam (Ativan) 1 mg ONCE PRN ORAL PRIOR TO MRI 10/03/17 13:30 10/03/17 22:00 Morphine Sulfate (Morphine Sulfate) 4 mg Q6H PRN IVP For Pain 10/02/17 17:59 10/09/17 17:58 10/03/17 06:48 Ondansetron HCl (Zofran) 4 mg Q6H PRN IVP Nausea & Vomiting 10/01/17 18:30 10/31/17 18:29 10/03/17 06:48 Polyethylene Glycol (Miralax) 17 gm HSPRN PRN ORAL Constipation 10/01/17 18:30 10/31/17 18:29 10/02/17 21:47 Sodium Chloride 1,000 ml @ 50 mls/hr Q20H IV 10/01/17 21:45 10/31/17 21:44 10/02/17 17:15 Warfarin Sodium (Coumadin per pharmacy) 1 ea DAILY PRN MISC Per rx protocol 10/01/17 18:30 10/31/17 18:29 Warfarin Sodium (Coumadin) 5 mg COUMADIN ONCE ORAL 10/03/17 17:00 10/03/17 17:01 Zolpidem Tartrate (Ambien) 5 mg HSPRN PRN ORAL Insomnia 10/01/17 18:30 10/08/17 18:29 Mg [place] MD Oct 03, 2017 12:45
[2017-10-03] MEDS ORDERED: LORazepam 1mg tab ORAL PRN (13:30)
[2017-10-03 16:00] VITALS: BP 140/78
[2017-10-03] MEDS ORDERED: Warfarin Sodium 5mg ORAL ONE (17:00)
[2017-10-03 20:00] VITALS: BP 132/76
[2017-10-03] MEDS ORDERED: Lactulose 20gm/30ml UDC ORAL PRN (21:15)
[2017-10-03] MEDS: Docusate 100mg cap ORAL SCH (22:10)
[2017-10-03] MEDS: Miralax 17gm pkt ORAL PRN (22:20)
[2017-10-04] VITALS: BP 131/71
[2017-10-04 04:00] VITALS: BP 108/53
[2017-10-04] MEDS: dilTIAZem HCl 90mg tab ORAL SCH ×2 (06:16→15:07)
[2017-10-04] MEDS: Morphine Sulfate 4mg/ml Inj IVP PRN (06:16)
[2017-10-04 06:30] LABS: INR 1.8 (0.9-1.1)
[2017-10-04 08:00] VITALS: BP 117/66
[2017-10-04] MEDS: Doxazosin 1mg Tab ORAL SCH (09:11)
[2017-10-04] MEDS: Lisinopril 20mg tab ORAL SCH (09:11)
[2017-10-04] MEDS: Docusate 100mg cap ORAL SCH ×2 (09:11→15:07)
[2017-10-04] MEDS: HydrALAZINE 50mg tab ORAL SCH (09:12)
[2017-10-04] MEDS ORDERED: 1/2 NS 1000ml IV ONE (10:08)
[2017-10-04 12:00] VITALS: BP 120/70
[2017-10-04] MEDS ORDERED: Methocarbamol 500mg tab ORAL PRN (12:15)
[2017-10-04] MEDS ORDERED: Norco 5mg/325mg tab ORAL PRN (12:15)
--- NOTE | 2017-10-04 12:21 | Consultation ---
History of Present Illness General Date patient seen: Oct 04, 2017 Chief Complaint: Present Illness Allergies: Coded Allergies: No Known Allergies (Unverified , 10/25/15) Medication History Scheduled Diltiazem HCl (Diltiazem ER), 150 MG PO BID, (Reported) Doxazosin Mesylate* (Doxazosin Mesylate*), 1 MG ORAL DAILY, (Reported) Flecainide Acetate (Flecainide Acetate), 50 MG PO BID, (Reported) Furosemide* (Lasix*), 40 MG ORAL DAILY, (Reported) Furosemide* (Lasix*), 80 MG ORAL TWICE A WEEK, (Reported) Hydralazine HCl (Hydralazine HCl), 10 MG ORAL BID, (Reported) Lisinopril (Lisinopril*), 5 MG ORAL BID, (Reported) Warfarin Sod* (Warfarin Sod*), 5 MG ORAL ONCE A WEEK, (Reported) Warfarin Sod* (Warfarin Sod*), 10 MG ORAL DAILY, (Reported) Miscellaneous Medications Clonidine HCl (Clonidine HCl), Unknown Dose PO, (Reported) Nitroglycerin (Nitroglycerin), Unknown Dose SL, (Reported) Patient History Healthcare decision maker Resuscitation status Full Code Advanced Directive on File No Physical Exam Last 24 Hour Vital Signs Date Time Temp Pulse Resp B/P (MAP) Pulse Ox O2 Delivery O2 Flow Rate FiO2 10/04/17 11:29 62 15 99 Facial 30 10/04/17 09:14 64 16 99 Facial 30 10/04/17 09:12 117/66 10/04/17 09:11 117/66 10/04/17 08:00 97.9 62 20 117/66 99 Bi-pap 97.9 10/04/17 07:34 53 10/04/17 07:20 60 16 98 Facial 30 10/04/17 06:16 68 108/53 10/04/17 05:35 68 15 99 Facial 30 10/04/17 04:00 54 10/04/17 04:00 98.6 54 13 108/53 97 Bi-pap 98.6 10/04/17 03:15 60 14 97 Facial 30 10/04/17 01:35 63 15 98 Facial 30 10/04/17 00:00 65 10/04/17 00:00 97.8 65 16 131/71 100 Room Air 97.8 10/03/17 23:08 68 19 98 Facial 30 10/03/17 22:12 132/76 10/03/17 22:11 67 132/76 10/03/17 20:00 98.2 67 18 132/76 96 Room Air 98.2 10/03/17 20:00 61 10/03/17 16:00 97.8 62 19 140/78 96 Room Air 97.8 62 10/03/17 14:18 67 10/03/17 14:01 65 128/73 Intake and Output 10/03/17 10/04/17 19:00 07:00 Intake Total 1120 ml Balance 1120 ml Intake Oral 520 ml IV Total 600 ml # Voids 4 2 # Bowel Movements 1 Laboratory Tests Test 10/04/17 05:40 Prothrombin Time 18.0 SEC (9.30-11.50) H Prothromb Time International Ratio 1.8 (0.9-1.1) H Height (Feet): 5 Height (Inches): 3.00 Weight (Pounds): 313 Medications Current Medications Medications (Trade) Dose Ordered Sig/Latrice Route PRN Reason Start Time Stop Time Status Last Admin Dose Admin Acetaminophen (Tylenol) 650 mg Q4H PRN ORAL fever (temp>100.5F) 10/01/17 18:30 10/31/17 18:29 10/03/17 14:06 Al Hydroxide/Mg Hydroxide (Mylanta II) 30 ml Q6H PRN ORAL dyspepsia 10/01/17 18:30 10/31/17 18:29 Dextrose (Dextrose 50%) 25 ml STAT PRN IV Hypoglycemia 10/01/17 18:30 10/31/17 18:29 Dextrose (Dextrose 50%) 50 ml STAT PRN IV Hypoglycemia 10/01/17 18:45 10/31/17 18:44 Diltiazem HCl (Cardizem) 90 mg EVERY 8 HOURS ORAL 10/02/17 14:00 11/01/17 13:59 10/04/17 06:16 Docusate Sodium (Colace) 100 mg THREE TIMES A DAY ORAL 10/03/17 22:00 11/02/17 21:59 10/04/17 09:11 Doxazosin Mesylate (Cardura) 1 mg DAILY ORAL 10/02/17 09:00 11/01/17 08:59 10/04/17 09:11 Flecainide Acetate (Tambocor) 100 mg Q12HR ORAL 10/02/17 21:00 11/01/17 20:59 10/04/17 09:11 Furosemide (Lasix) 40 mg DAILY ORAL 10/02/17 09:00 11/01/17 08:59 10/04/17 09:11 Hydralazine HCl (Apresoline) 200 mg Q12HR ORAL 10/02/17 21:00 10/31/17 20:59 10/04/17 09:12 Lactulose (Cephulac) 30 gm Q6H PRN ORAL Constipation 10/03/17 21:15 11/02/17 21:14 Lisinopril (Prinivil) 40 mg DAILY ORAL 10/03/17 09:00 11/02/17 08:59 10/04/17 09:11 Lorazepam (Ativan 2mg/ml 1ml) 0.5 mg Q4H PRN IV For Anxiety 10/01/17 18:30 10/08/17 18:29 Morphine Sulfate (Morphine Sulfate) 4 mg Q6H PRN IVP For Pain 10/02/17 17:59 10/09/17 17:58 10/04/17 06:16 Ondansetron HCl (Zofran) 4 mg Q6H PRN IVP Nausea & Vomiting 10/01/17 18:30 10/31/17 18:29 10/04/17 06:17 Polyethylene Glycol (Miralax) 17 gm HSPRN PRN ORAL Constipation 10/01/17 18:30 10/31/17 18:29 10/03/17 22:20 Sodium Chloride 1,000 ml @ 50 mls/hr Q20H IV 10/01/17 21:45 10/31/17 21:44 10/03/17 14:05 Warfarin Sodium (Coumadin per pharmacy) 1 ea DAILY PRN MISC Per rx protocol 10/01/17 18:30 10/31/17 18:29 Warfarin Sodium (Coumadin) 10 mg COUMADIN ONCE ORAL 10/04/17 17:00 10/04/17 17:01 Zolpidem Tartrate (Ambien) 5 mg HSPRN PRN ORAL Insomnia 10/01/17 18:30 10/08/17 18:29 Assessment/Plan Assessment/Plan (1) Sacroiliitis (2) Sacroiliac joint dysfunction (3) Lumbar Spondylosis (4) Lumbar Radiculopathy seen dictated. Faisal Alexander Oct 04, 2017 12:21
--- NOTE | 2017-10-04 12:24 | Pulmonology Progress Note ---
Assessment/Plan Problems: (1) ACS (acute coronary syndrome) (2) History of atrial fibrillation (3) GERD (gastroesophageal reflux disease) (4) Costochondritis (5) Morbid obesity with BMI of 50.0-59.9, adult (6) Chronic anticoagulation Assessment/Plan d/w pain specialist Ct showing ileitis Pain management MRI of L spine can't be done cardio to follow for chest pain symptomatic treatment Subjective ROS Limited/Unobtainable: No HEENT: Repors: no symptoms Respiratory: Reports: no symptoms Cardiovascular: Reports: no symptoms Allergies: Coded Allergies: No Known Allergies (Unverified , 10/25/15) Objective Last 24 Hour Vital Signs Date Time Temp Pulse Resp B/P (MAP) Pulse Ox O2 Delivery O2 Flow Rate FiO2 10/04/17 12:00 97.7 60 20 120/70 (87) 96 97.7 10/04/17 11:29 62 15 99 Facial 30 10/04/17 09:14 64 16 99 Facial 30 10/04/17 09:12 117/66 10/04/17 09:11 117/66 10/04/17 08:00 97.9 62 20 117/66 99 Bi-pap 97.9 10/04/17 07:34 53 10/04/17 07:20 60 16 98 Facial 30 10/04/17 06:16 68 108/53 10/04/17 05:35 68 15 99 Facial 30 10/04/17 04:00 54 10/04/17 04:00 98.6 54 13 108/53 97 Bi-pap 98.6 10/04/17 03:15 60 14 97 Facial 30 10/04/17 01:35 63 15 98 Facial 30 10/04/17 00:00 65 10/04/17 00:00 97.8 65 16 131/71 100 Room Air 97.8 10/03/17 23:08 68 19 98 Facial 30 10/03/17 22:12 132/76 10/03/17 22:11 67 132/76 10/03/17 20:00 98.2 67 18 132/76 96 Room Air 98.2 10/03/17 20:00 61 10/03/17 16:00 97.8 62 19 140/78 96 Room Air 97.8 62 10/03/17 14:18 67 10/03/17 14:01 65 128/73 Intake and Output 7/5/18 7/6/18 19:00 07:00 Intake Total 1120 ml Balance 1120 ml Intake Oral 520 ml IV Total 600 ml # Voids 4 2 # Bowel Movements 1 General Appearance: WD/WN HEENT: normocephalic, mucous membranes moist, PERRL Respiratory/Chest: lungs clear Breasts: no masses Cardiovascular: normal peripheral pulses Genitourinary: normal external genitalia Laboratory Tests 10/04/17 05:40: Prothrombin Time 18.0H, Prothromb Time International Ratio 1.8H Current Medications Medications (Trade) Dose Ordered Sig/Latrice Route PRN Reason Start Time Stop Time Status Last Admin Dose Admin Acetaminophen (Tylenol) 650 mg Q4H PRN ORAL fever (temp>100.5F) 10/01/17 18:30 10/31/17 18:29 10/03/17 14:06 Acetaminophen/ Hydrocodone Bitart ([place] 5/325) 1 tab Q4H PRN ORAL Moderate Pain (Pain Scale 4-6) 10/04/17 12:15 10/11/17 12:14 Al Hydroxide/Mg Hydroxide (Mylanta II) 30 ml Q6H PRN ORAL dyspepsia 10/01/17 18:30 10/31/17 18:29 Dextrose (Dextrose 50%) 25 ml STAT PRN IV Hypoglycemia 10/01/17 18:30 10/31/17 18:29 Dextrose (Dextrose 50%) 50 ml STAT PRN IV Hypoglycemia 10/01/17 18:45 10/31/17 18:44 Diltiazem HCl (Cardizem) 90 mg EVERY 8 HOURS ORAL 10/02/17 14:00 11/01/17 13:59 10/04/17 06:16 Docusate Sodium (Colace) 100 mg THREE TIMES A DAY ORAL 10/03/17 22:00 11/02/17 21:59 10/04/17 09:11 Doxazosin Mesylate (Cardura) 1 mg DAILY ORAL 10/02/17 09:00 11/01/17 08:59 10/04/17 09:11 Flecainide Acetate (Tambocor) 100 mg Q12HR ORAL 10/02/17 21:00 11/01/17 20:59 10/04/17 09:11 Furosemide (Lasix) 40 mg DAILY ORAL 10/02/17 09:00 11/01/17 08:59 10/04/17 09:11 Gabapentin (Neurontin) 100 mg THREE TIMES A DAY ORAL 10/04/17 13:00 11/03/17 12:59 Hydralazine HCl (Apresoline) 200 mg Q12HR ORAL 10/02/17 21:00 10/31/17 20:59 10/04/17 09:12 Lactulose (Cephulac) 30 gm Q6H PRN ORAL Constipation 10/03/17 21:15 11/02/17 21:14 Lisinopril (Prinivil) 40 mg DAILY ORAL 10/03/17 09:00 11/02/17 08:59 10/04/17 09:11 Lorazepam (Ativan 2mg/ml 1ml) 0.5 mg Q4H PRN IV For Anxiety 10/01/17 18:30 10/08/17 18:29 Methocarbamol (Robaxin) 500 mg Q8H PRN ORAL muscle spasm 10/04/17 12:15 11/03/17 12:14 Morphine Sulfate (Morphine Sulfate) 4 mg Q6H PRN IVP Severe Pain (Pain Scale 7-10) 10/04/17 12:30 10/09/17 12:29 Ondansetron HCl (Zofran) 4 mg Q6H PRN IVP Nausea & Vomiting 10/01/17 18:30 10/31/17 18:29 10/04/17 06:17 Polyethylene Glycol (Miralax) 17 gm HSPRN PRN ORAL Constipation 10/01/17 18:30 10/31/17 18:29 10/03/17 22:20 Sodium Chloride 1,000 ml @ 50 mls/hr Q20H IV 10/01/17 21:45 10/31/17 21:44 10/03/17 14:05 Warfarin Sodium (Coumadin per pharmacy) 1 ea DAILY PRN MISC Per rx protocol 10/01/17 18:30 10/31/17 18:29 Warfarin Sodium (Coumadin) 10 mg COUMADIN ONCE ORAL 10/04/17 17:00 10/04/17 17:01 Zolpidem Tartrate (Ambien) 5 mg HSPRN PRN ORAL Insomnia 10/01/17 18:30 10/08/17 18:29 Mg South MD Oct 04, 2017 12:24
[2017-10-04] MEDS ORDERED: Morphine Sulfate 4mg/ml Inj IVP PRN (12:30)
--- NOTE | 2017-10-04 13:17 | Cardiology Report ---
APPROVED REPORT EXAM: Two-dimensional and M-mode echocardiogram with Doppler and color Doppler. INDICATION LV FUNCTION M-Mode DIMENSIONS IVSd1.0 (0.7-1.1cm)Left Atrium (MM)4.3 (1.6-4.0cm) LVDd6.7 (3.5-5.6cm)Aortic Root3.0 (2.0-3.7cm) PWd1.3 (0.7-1.1cm)Aortic Cusp Exc.1.8 (1.5-2.0cm) IVSs1.6 cm LVDs4.5 (2.5-4.0cm) PWs1.3 cm Technically difficult study due to poor acoustical windows . Normal left ventricular chamber size, systolic function and wall motion as well visualized Left ventricular ejection fraction estimated to be 60-65%. Mild left ventricular hypertrophy by 2-D. No evidence of pericardial effusion. Mild right atrial enlargements . left cardiac chamber sizes are within normal limits. Focal aortic valve sclerosis with adequate cusp excursion. Thickened mitral valve leaflets with normal excursion. Mitral annulus and aortic root calcification. Pulmonic valve not well visualized. Normal tricuspid valve structure. IVC dilated at size 2.5 with slightly physiologic collapse suggestive of increased RA pressure. A color flow and spectral Doppler study was performed and revealed: No aortic regurgitation. Mild mitral regurgitation. Mild tricuspid regurgitation. Normal left ventricular diastolic function . Tricuspid systolic velocities suggests peak right ventricular systolic pressure of 44mmHg,consistent with mild pulmonary hypertension . No Pulmonic regurgitation present.
--- NOTE | 2017-10-04 14:17 | Diagnostic Imaging Report ---
APPROVED REPORT CPT Code: 55493 Present Symptoms Comments: BILATERAL LEGS PAIN. BILATERAL: Imaging reveals a patent deep venous system bilaterally. There is no evidence of thrombus within the femoral, popliteal or tibial segments. The greater saphenous veins are also within normal limits. Doppler indicates normal spontaneous flow within these segments.
--- NOTE | 2017-10-04 14:28 | Cardiology Report ---
APPROVED REPORT EKG Measurement Heart [id number] Sinus bradycardia Incomplete left bundle branch block Borderline ECG
[2017-10-04 15:07] VITALS: BP 120/70
[2017-10-04] MEDS ORDERED: Warfarin Sodium 10mg ORAL ONE (17:00)
--- NOTE | 2017-10-04 18:00 | Consultation ---
DATE OF CONSULTATION: 10/04/2017 PAIN MANAGEMENT CONSULTATION CONSULTING PHYSICIAN: Guerrero Wyatt M.D. REFERRING PHYSICIAN: Mg South M.D. PHYSICIAN LAND CONSERVATION SPECIALIST: Cristian Gomez CHIEF COMPLAINT: Low back pain and right lower extremity pain. HISTORY: This is a 46-year-old female, who is being seen on the telemetry floor of [facility] for initial comprehensive pain management consultation. The patient was admitted under the care of Dr. South due to chest pain, being seen by a air compressor engineer for that issue, reports that she has been having right leg pain into the buttock and right thigh, constant acute pain, rating at 7/10, describing the pain as a stabbing pain, increasing with touch and nothing has been able to relieve her pain. She also complains of low back pain for the past year. It is off and on pain, it is chronic, rating at 7/10, describing the pain as a shooting pain into the right lower extremity, increasing with movement, nothing has been able to relieve her pain with complaints of bilateral knee pain due to osteoarthritis. The patient had, upon admission, a CT scan of the lumbar spine, showing mild facet arthropathy in the lower lumbar spine with mild osteophyte formation and vacuum phenomenon involving the sacroiliac joints as well as a pelvic CT scan showing L5-S1 facet vacuum phenomenon indicative of arthropathy as well as vacuum phenomenon, sclerosis, osteophyte formation of the sacroiliac joints, and mild osteophyte formation involving the hip bilaterally. The patient upon admission was started on morphine 4 mg IV every six hours as needed for pain, which has reduced her pain to a tolerable level. We were consulted so that the patient would have adequate pain control while here in the hospital. At this time, I discussed with the patient about the patient's CT scans, was ordered to do an MRI, however, was unable to fit into the machine due to her body habitus and will be going as per customer sales service manager for an open MRI as an outpatient. I discussed with the patient about the patient's CT scan results and I did explain to the patient that she has possible sacroiliac dysfunction and sacroiliitis needing a sacroiliac joint injection to be done as an outpatient. The patient seems to understand. Discussed with the patient about the option for Neurontin as well as Robaxin for muscle relaxation. She seems to understand and agrees. Does not need prescription for home due to the patient having tramadol for opioids. PAST MEDICAL HISTORY: Hypertension, morbid obesity, apnea, osteoarthritis, atrial fibrillation, mitral regurgitation, COPD, and asthma. PAST SURGICAL HISTORY: . MEDICATIONS: Diltiazem, doxazosin, flecainide, Lasix, hydralazine, lisinopril, warfarin, nitroglycerin, clonidine, and tramadol. ALLERGIES: No known drug allergies. SOCIAL HISTORY: Denies smoking tobacco, drinking alcohol, or IV drug abuse. REVIEW OF SYSTEMS: Denies rash, fever, chills, sweating, dizziness, drowsiness, blurred vision, sore throat, change in her weight. No shortness of breath or chest pain. No nausea, vomiting, or blood in the stool or urine. No bowel or bladder incontinence. No dysuria. She is complaining of low back and right lower extremity pain. PHYSICAL EXAMINATION: GENERAL: Alert, awake, and oriented x3. VITAL SIGNS: Blood pressure 117/66, heart rate is 62, oxygen saturation is 99%, respiratory rate is 20, and temperature is 97.9 degrees Fahrenheit. HEENT: PERRLA. NECK: Range of motion is full in all directions. No tenderness to paracervical muscles. No adenopathy. LUNGS: Decreased breath sounds bilaterally. HEART: S1 and S2 regular. ABDOMEN: Obese. BACK: Range of motion is decreased in flexion and extension with tenderness to paraspinal muscles. No tenderness to trapezius or rhomboid muscles. EXTREMITIES: Upper and lower extremity range of motion is full in all directions. Motor is intact. No cyanosis. No clubbing with edema noted. Sensory is intact. Reflexes are not obtainable. No adenopathy. ASSESSMENT AND PLAN: This is a 46-year-old female with sacroiliitis, sacroiliac joint dysfunction, lumbar spondylosis, and lumbar radiculopathy. The patient was advised when discharged as per customer sales service manager to go for an MRI of the lumbar and pelvis without contrast to further assess for pathology in the lower and pelvic area. They advised the patient to follow up with her primary care physician to be referred to either a pain specialist or an orthopedic surgeon for a sacroiliac joint injection. The patient reports that she is unable to take anti-inflammatories and discussed with the patient about writing a prescription for Neurontin 100 mg tablet 3 times a day and Robaxin 500 tablet every 8 hours as needed. For discharge, no need for opioid prescription due to the patient having tramadol as an outpatient. The patient, at this time, will be continued on morphine 4 mg IV every 6 hours as needed for severe pain. We will start the patient on [place] 5/325 one tablet every 4 hours as needed for moderate pain to transition from intravenous to oral medication. Start the patient on Neurontin 100 mg tablet 3 times a day as well as Robaxin 500 mg tablet every 8 hours as needed for muscle spasm. The patient was discussed with Dr. Wyatt and Dr. Wyatt concurred. We will follow the patient. Thank you very much for the courtesy of this consultation. Guerrero Wyatt M.D. MIRNA Gomez DR: TALHA JOB#: [id number] CC:
--- NOTE | 2017-10-07 09:32 | Discharge Summary ---
Discharge Summary Discharge Summary _ DATE OF ADMISSION: 10/01/2017 DATE OF DISCHARGE: 10/04/2017 REASON FOR ADMISSION: 46 years old female with past medical history significant for congestive heart failure, atrial fibrillation, chronic anticoagulation, COPD, hypertension, arthritis, morbid obesity with BMI over 50, apparently obstructive sleep apnea( using BiPAP), presented with right hip pain for one day. Patient also reported short lived left chest discomfort, no shortness of breath , No radiation of chest pain. She denied any trauma or injury to right hip. She denied any bleeding in urine or stool. No fevers, no chills. Upon evaluation in emergency department patient showed stable vital signs. Laboratory workup revealed no leukocytosis, stable hemoglobin and hematocrit. Troponin negative pro BNP 191. CK within normal limits. INR=4.9 Urinalysis with no evidence of UTI. Renal parameters, electrolytes were within normal limits. X-ray of bilateral hip revealed no acute findings. CT of the pelvis and spine revealed no evidence of acute injury, no hematoma. It showed evidence of degenerative joint disease . Patient admitted for further management with diagnosis of chest pain, rule out acute coronary syndrome, atrial fibrillation, morbid obesity, chronic anticoagulation, CONSULTANTS: pig casting machine operator dr. Dean Pain specialist Dr. Wyatt [place] [employer]RSE: Patient admitted to telemetry floor. Cardiology consult was requested. Serial troponin were negative EKG revealed no acute ischemic changes Patient was ruled out for acute myocardial infarction. Echocardiogram revealed preserved ejection fraction. Patient was on aspirin. Lipid panel revealed elevated LDL and total triglycerides. Enamel Sprayer recommended statin. Nitroglycerin as needed for chest pain was on board. Patient was counseled on low fat, low cardiac diet. Weight loss and compliance with CPAP were discussed with patient. Patient had a treadmill in June as outpatient, which apparently excluded coronary artery disease. Enamel Sprayer recommended outpatient stress test. Heart rate was controlled with Cardizem. Patient was continued on Flecainide. Coumadin initially was on hold for INR 4.9, prior to discharge INR 1.8 Coumadin resumed with goal to keep INR in therapeutic window. Patient was recommended frequent and close monitoring of INR at the primary care provider office. Patient was reminded to report any source of bleeding. Maintenance dose of Lasix was continued Renal parameters and electrolytes along with volumes were closely monitored , remained stable. Blood pressure was managed with JENNI inhibitor, Hydralazine and Cardizem, remained stable. TSH was within normal limits. Pain specialist closely followed. Per pain specialist , patient had sacroiliitis along with sacroiliac joint dysfunction, lumbar spondylosis and lumbar radiculopathy. While in the hospital patient was on multiply regimen of analgesics, including opioids, muscle relaxant and Neurontin. Acute pain resolved. Patient was working with physical and occupational therapists. Fall precaution maintained. Unable to do MRI in the facility due to morbid obesity. Pain management was provided as per pain specialist recommendations. Patient unable to take anti-inflammatory medications secondary to being on chronic anticoagulation. No need for opioids upon discharge. Prescription for Neurontin and Robaxin provided. Pain specialist recommended obtaining MRI of the lumbar spine and pelvis as outpatient ( without contrast ) to further assess for pathology in this area. Patient was advised to follow-up with her primary care provider with further referral to a pain specialist or to orthopedic surgeon for a sacroiliac joint injection. No further chest pain, no shortness of breath, no cardiac complaints, Stable telemetry. Chest pain was likely due to GERD versus costochondritis versus due to acute pain from sacroiliitis. Pain controlled. Patient was stable for discharge home with home health services to follow. FINAL DIAGNOSES: Sacroiliitis Sacroiliac joint dysfunction GERD costochondritis atrial fibrillation chronic anticoagulation morbid obesity with BMI over 50 Lumbar spondylolisthesis Lumbar radiculopathy DISCHARGE MEDICATIONS: See Medication Reconciliation list. DISCHARGE INSTRUCTIONS: Patient was discharged home. Outpatient follow-up with her primary care provider for referral either to pain specialist or orthopedic surgeon for a sacroiliac joint injection. I have been assigned to dictate discharge summary for this account. I was not involved in the patient's management. Naty Dunham NP Oct 07, 2017 09:32
== END 2017-10-04 17:02 | disposition home health service (06) | DRG 552 ==
LOC: EDBD 11:34 → EMR 12:37 → 2E 14:44 → EDBEDREQ 15:16
DX: M46.1 Sacroiliitis, not elsewhere classified (principal); Z68.43 Body mass index [BMI] 50.0-59.9, adult; M53.3 Sacrococcygeal disorders, not elsewhere classified; K21.9 Gastro-esophageal reflux disease without esophagitis; M94.0 Chondrocostal junction syndrome [Tietze]; I48.91 Unspecified atrial fibrillation; Z79.01 Long term (current) use of anticoagulants; E66.01 Morbid (severe) obesity due to excess calories; M47.26 Other spondylosis with radiculopathy, lumbar region; M17.0 Bilateral primary osteoarthritis of knee; G47.33 Obstructive sleep apnea (adult) (pediatric)
CPT/HCPCS: 36415; 71045; 72131; 72170; 72192; 80053; 80061; 81003; 82550; 83880; 84443; 84484; 84550; 85025; 85610; 85651; 93005; 93306; 93970; 94660; 94664; 99285; J2405

== ENCOUNTER 2017-11-06 05:29 | Emergency (ER) | payer MEDICARE, MEDICAID ==
[~2017-11-06] VITALS: Ht 160 cm; Wt 140.6 kg
[~2017-11-06 05:29] MED LIST changes: +FUROSEMIDE80 M1 ORAL; +WARFARIN SODIUM10 MG ORAL; +WARFARIN SODIUM5 MG ORAL
--- NOTE | 2017-11-06 05:39 | Emergency Room Report ---
History of Present Illness General Chief Complaint: Chest Pain Source: Patient Present Illness HPI Is a 39-year-old female with a history of intracranial lesion on Coumadin. She also gets frequent chest pain for which she takes nitroglycerin. She said she has numerous stress tests and always been negative. She presents with chief complaint of chest pain. Onset was just prior to arrival. She woke up to go to the bathroom and had blurry vision and pressure in the left thigh. Then she developed tingliness and chest pain and arm pain. She took her nitroglycerin and called 911. EMS gave her aspirin. Vision improving. Denies any fever chills but denies slurred speech. Denies any focal deficit. Allergies: Coded Allergies: No Known Allergies (Unverified , 10/25/15) Patient History Past Medical History: see triage record, old chart reviewed, HTN, AFib Past Surgical History: other Pertinent Family History: none Social History: Denies: smoking Now: No Immunizations: other Reviewed Nursing Documentation: PMH: Agreed; PSxH: Agreed Nursing Documentation-PMH Hx Hypertension: Yes Hx Asthma: Yes Hx COPD: Yes Hx Cancer: No Hx Gastrointestinal Problems: Yes Hx Vertigo: Yes - June,August 2017 Hx Numbness: Yes - September 2017 Hx Weakness: Yes Review of Systems Eye: Denies: eye pain, blurred vision ENT: Denies: ear pain, nose congestion, throat swelling Respiratory: Denies: cough, shortness of breath Cardiovascular: Reports: chest pain; Denies: palpitations Gastrointestinal: Denies: abdominal pain, diarrhea, nausea, vomiting Musculoskeletal: Denies: back pain, joint pain Skin: Denies: rash Neurological: Denies: headache, numbness Endocrine: Denies: increased thirst, increased urine Hematologic/Lymphatic: Denies: easy bruising All Other Systems: negative except mentioned in HPI Physical Exam Vital Signs Date Time Temp Pulse Resp B/P (MAP) Pulse Ox O2 Delivery O2 Flow Rate FiO2 11/06/17 05:30 97.9 88 16 142/88 96 Room Air 97.9 vitals normal Sp02 EP Interpretation: reviewed, normal General Appearance: well appearing, no apparent distress, alert, obese Head: normocephalic, atraumatic Eyes: bilateral eye PERRL, bilateral eye EOMI ENT: hearing grossly normal, normal pharynx Neck: full range of motion, supple, no meningismus Respiratory: chest non-tender, lungs clear, normal breath sounds Cardiovascular #1: regular rate, rhythm, no murmur Gastrointestinal: normal bowel sounds, non tender, no mass, no organomegaly, no bruit, non-distended Musculoskeletal: back normal, gait/station normal, normal range of motion Psychiatric: mood/affect normal Skin: warm/dry Medical Decision Making Diagnostic Impression: Primary Impression: Chest pain Qualified Codes: R07.9 - Chest pain, unspecified Additional Impressions: Morbid obesity with BMI of 50.0-59.9, adult Headache Qualified Codes: R51 - Headache ER Course Patient presents with headache and chest pain. Pain is atypical in nature. She has been worked up cardiac perry multiple times another negative. She is therapeutic on her Coumadin. No evidence of A. fib here. She's been in sinus. This may be more anxiety related. No evidence of ACS, PE, dissection, pneumonia to name a few. I will sign this patient out to Dr. Gomez for final disposition. Lab Results Impression labs unremarkable EKG Diagnostic Results Rate: normal Rhythm: NSR ST Segments: no acute changes Rhythm Strip Diag. Results Rhythm Strip Time: 05:39 EP Interpretation: yes Rate: 72 Rhythm: NSR, no PVC's, no ectopy Chest X-Ray Diagnostic Results Chest X-Ray Diagnostic Results : Chest X-Ray Ordered: Yes # of Views/Limited/Complete: 1 View Indication: Chest Pain EP Interpretation: Yes Interpretation: no consolidation, no effusion, no pneumothorax, no acute cardiopulmonary disease Impression: No acute disease Electronically Signed by: Rob Parrish MD CT/MRI/US Diagnostic Results CT/MRI/US Diagnostic Results : Imaging Test Ordered: Ct head Impression read by radiologist. NEG Last Vital Signs Date Time Temp Pulse Resp B/P (MAP) Pulse Ox O2 Delivery O2 Flow Rate FiO2 11/06/17 05:30 97.9 88 16 142/88 96 Room Air 97.9 Status: improved Condition: Stable ROB PARRISH M.D. Nov 06, 2017 05:39
[2017-11-06 05:40] VITALS: BP 142/88
[2017-11-06 05:56] LABS: BASOPHILS % (AUTO) 1.2 % (0.0-2.0); EOSINOPHILS % (AUTO) 3.4 % (0.0-3.0); HEMATOCRIT 38.9 % (37.0-47.0); HEMOGLOBIN 11.8 G/DL (12.0-16.0); LYMPHOCYTES % (AUTO) 44.1 % (20.0-45.0); MEAN CORPUSCULAR VOLUME 81 FL (80-99); MONOCYTES % (AUTO) 8.8 % (1.0-10.0); NEUTROPHILS % (AUTO) 42.5 % (45.0-75.0); PLATELET COUNT 303 K/UL (150-450); RED BLOOD COUNT 4.83 M/UL (4.20-5.40); RED CELL DISTRIBUTION WIDTH 16.7 % (11.6-14.8); WHITE BLOOD COUNT 7.4 K/UL (4.8-10.8)
[2017-11-06 06:07] LABS: INR 3.2 (0.9-1.1)
[2017-11-06 06:09] LABS: ANION GAP 8 mmol/L (5-15); BLOOD UREA NITROGEN 17 mg/dL (7-18); CALCIUM 8.1 MG/DL (8.5-10.1); CARBON DIOXIDE 28 MMOL/L (21-32); CHLORIDE 103 MMOL/L (98-107); CREATININE 1.3 MG/DL (0.55-1.30); POTASSIUM 3.3 MMOL/L (3.5-5.1); SODIUM 139 MMOL/L (136-145)
[2017-11-06 06:23] LABS: APPEARANCE,URINE CLEAR; BILIRUBIN, URINE NEGATIVE (NEGATIVE); COLOR,URINE PALE YELLOW; GLUCOSE, URINE (UA) NEGATIVE (NEGATIVE); KETONES,URINE NEGATIVE (NEGATIVE); LEUKOCYTE ESTERASE ,URINE 2+ (NEGATIVE); NITRITE,URINE NEGATIVE (NEGATIVE); PH,URINE 8 (4.5-8.0); PROTEIN,URINE 2+ (NEGATIVE); UROBILINOGEN,URINE NORMAL (NORMAL)
[2017-11-06 06:24] LABS: ALANINE AMINOTRANSFERASE 12 U/L (12-78); ALBUMIN 2.7 G/DL (3.4-5.0); ALBUMIN/GLOBULIN RATIO 0.6 (1.0-2.7); ALKALINE PHOSPHATASE 85 U/L (46-116); ASPARTATE AMINO TRANSFERASE 12 U/L (15-37); BILIRUBIN,TOTAL 0.2 MG/DL (0.2-1.0); CKMB 0.6 NG/ML (0.0-3.6); CREATINE KINASE 91 U/L (26-308)
[2017-11-06] MEDS ORDERED: Morphine Sulfate 4mg/ml Inj (IV USE ONLY) ONE (06:27)
[2017-11-06] MEDS ORDERED: Morphine Sulfate 4mg/ml Inj (IV USE ONLY) IVP ONE (06:30)
[2017-11-06 07:40] VITALS: BP 137/77
--- NOTE | 2017-11-06 08:16 | Diagnostic Imaging Report ---
Indication: Altered mental status Technique: Continuous helical CT scanning of the head was performed utilizing automated exposure control without intravenous contrast material. Axial and coronal reconstructions were obtained. Comparison: None CT dose: Total DLP 1343.41 mGycm; CTDI vol 70.38 mGy Findings: There is no acute intracranial hemorrhage, mass effect or cortical edema. The ventricles, cisterns and sulci are within normal limits for age. Visualized mastoid air cells and paranasal sinuses are unremarkable. No focal lesions of the bony calvarium or soft tissues of the scalp are seen. IMPRESSION: No evidence of acute intracranial hemorrhage, mass effect or cortical edema. MRI may be obtained for more sensitive evaluation as clinically indicated. This corresponds with the statrad preliminary report. The CT scanner at [facility] is accredited by the [employer] and the scans are performed using protocols designed to limit radiation exposure to as low as reasonably achievable to attain images of sufficient resolution adequate for diagnostic evaluation.
--- NOTE | 2017-11-06 08:20 | Diagnostic Imaging Report ---
Indication: Chest pain Technique: Portable AP views of the chest Comparison: 10/03/2017 Findings: Heart appears mildly enlarged although this may be exaggerated due to AP technique. Heart size and mediastinal contours are stable compared to the prior exam. There is no focal airspace consolidation, pleural effusion or pneumothorax. No acute osseous abnormality. IMPRESSION: No radiographic evidence of acute cardiopulmonary disease. No significant interval change in the radiographic appearance of the chest compared to 10/03/2017.
--- NOTE | 2017-11-06 16:01 | Cardiology Report ---
APPROVED REPORT EKG Measurement Heart [id number] Normal sinus rhythm Normal ECG
== END 2017-11-06 07:40 | disposition home or self-care (01) ==
LOC: EDUNIT# 05:29 → EDBD 05:29 → EMR 05:43
DX: R07.9 Chest pain, unspecified (principal); R51 Headache; I10 Essential (primary) hypertension; J45.909 Unspecified asthma, uncomplicated; J44.9 Chronic obstructive pulmonary disease, unspecified; E66.01 Morbid (severe) obesity due to excess calories; Z68.43 Body mass index [BMI] 50.0-59.9, adult; Z79.01 Long term (current) use of anticoagulants
CPT/HCPCS: 36415; 70450; 71045; 80053; 80307; 81003; 82550; 82553; 83880; 84484; 85025; 85610; 85730; 93005; 96374; 96375; 99284; J2270; J2405

== ENCOUNTER 2017-12-14 01:21 | Emergency (ER) | payer MEDICAID, MEDICARE ==
[~2017-12-14] VITALS: Ht 160 cm; Wt 140.6 kg
[2017-12-14 01:40] VITALS: BP 144/84
[2017-12-14] MEDS ORDERED: Morphine Sulfate 4mg/ml Inj (IV USE ONLY) IVP ONE (01:45)
[2017-12-14] MEDS ORDERED: Clindamycin 900mg 50 ML IVPB ONE (01:45)
[2017-12-14] MEDS ORDERED: Bacitracin Oint UD TOPIC ONE (01:45)
--- NOTE | 2017-12-14 01:50 | Emergency Room Report ---
History of Present Illness General Chief Complaint: Skin Rash/Abscess Source: Patient, Medical Record, EMS Present Illness HPI This is a 47-year-old female with history of defibrillation on Coumadin. She presents with chief complaint of bites to her body. She said his been ongoing for several days. Now scattered throughout her body. She did not see a particular bug or spider biting her. But she insisted the bug bite. Denies any fever chills but no nausea no vomiting. Diffuse pain. No other complaint. Pain is 9 out of 10. Allergies: Coded Allergies: No Known Allergies (Unverified , 10/25/15) Patient History Past Medical History: see triage record, old chart reviewed, AFib Past Surgical History: other Pertinent Family History: none Social History: Denies: smoking Now: No Immunizations: other Reviewed Nursing Documentation: PMH: Agreed; PSxH: Agreed Nursing Documentation-PMH Hx Hypertension: Yes Hx Asthma: Yes Hx COPD: Yes Hx Cancer: No Hx Gastrointestinal Problems: Yes Hx Vertigo: Yes - June,August 2017 Hx Numbness: Yes - September 2017 Hx Weakness: Yes Review of Systems Eye: Denies: eye pain, blurred vision ENT: Denies: ear pain, nose congestion, throat swelling Respiratory: Denies: cough, shortness of breath Cardiovascular: Denies: chest pain, palpitations Gastrointestinal: Denies: abdominal pain, diarrhea, nausea, vomiting Musculoskeletal: Denies: back pain, joint pain Skin: Reports: rash Neurological: Denies: headache, numbness Endocrine: Denies: increased thirst, increased urine Hematologic/Lymphatic: Denies: easy bruising All Other Systems: negative except mentioned in HPI Physical Exam Vital Signs Date Time Temp Pulse Resp B/P (MAP) Pulse Ox O2 Delivery O2 Flow Rate FiO2 12/14/17 01:39 97.5 96 18 144/84 96 Room Air 97.5 vitals normal Sp02 EP Interpretation: reviewed, normal General Appearance: well appearing, no apparent distress, alert Head: normocephalic, atraumatic Eyes: bilateral eye PERRL, bilateral eye EOMI ENT: hearing grossly normal, normal pharynx Neck: full range of motion, supple, no meningismus Respiratory: chest non-tender, lungs clear, normal breath sounds Cardiovascular #1: regular rate, rhythm, no murmur Gastrointestinal: normal bowel sounds, non tender, no mass, no organomegaly, no bruit, non-distended Musculoskeletal: back normal, gait/station normal, normal range of motion, other - Her right lower extremity there is a ecchymotic and erythematous lesion measuring about 2 cm. No drainage. There is a 1 cm erythematous lesion with central necrosis on her right upper arm. Is also a small one on the torso. No abscess. Neurologic: alert, oriented x3 Psychiatric: mood/affect normal Skin: warm/dry Medical Decision Making Diagnostic Impression: Primary Impression: Cellulitis Qualified Codes: L03.90 - Cellulitis, unspecified Additional Impression: Chronic anticoagulation ER Course Patient with scatter cellulitis. Most likely MRSA. No evidence of abscess. No evidence of necrotizing fasciitis. No some antibiotics given here. We'll discharge home. Last Vital Signs Date Time Temp Pulse Resp B/P (MAP) Pulse Ox O2 Delivery O2 Flow Rate FiO2 12/14/17 01:39 97.5 96 18 144/84 96 Room Air 97.5 Status: improved Disposition: HOME, SELF-CARE Condition: Stable Scripts Mupirocin* (MUPIROCIN*) 22 Gm Oint...g. 1 APPLIC TOPIC THREE TIMES A DAY, #22 GM Prov: JUMA SMITH M.D. 12/14/17 Clindamycin Hcl (CLINDAMYCIN HCL) 300 Mg Capsule 300 MG ORAL THREE TIMES A DAY, #21 CAP Prov: JUMA SMITH M.D. 12/14/17 Additional Instructions: Hold Coumadin for Saturday night. Go back to the regimen of 5 mg of Coumadin twice a week and 10 mg 5 times a week. Keep wound clean. Clean first with hydroperoxide and then apply antibiotic ointment. Recheck the INR in a week after antibiotics. Return if worse. Follow-up with your doctor in 7 days for recheck. JUMA SMITH M.D. Dec 14, 2017 01:50
[2017-12-14 02:10] LABS: EOSINOPHILS % (AUTO) 1.3 % (0.0-3.0); HEMATOCRIT 38.4 % (37.0-47.0); LYMPHOCYTES % (AUTO) 30.4 % (20.0-45.0); MEAN CORPUSCULAR VOLUME 80 FL (80-99); MONOCYTES % (AUTO) 7.5 % (1.0-10.0); NEUTROPHILS % (AUTO) 59.8 % (45.0-75.0); PLATELET COUNT 316 K/UL (150-450); RED BLOOD COUNT 4.79 M/UL (4.20-5.40); RED CELL DISTRIBUTION WIDTH 15.4 % (11.6-14.8); WHITE BLOOD COUNT 8.5 K/UL (4.8-10.8)
[2017-12-14 02:20] LABS: ANION GAP 7 mmol/L (5-15); BLOOD UREA NITROGEN 19 mg/dL (7-18); CARBON DIOXIDE 28 MMOL/L (21-32); CHLORIDE 103 MMOL/L (98-107); CREATININE 1.2 MG/DL (0.55-1.30); POTASSIUM 3.8 MMOL/L (3.5-5.1); SODIUM 138 MMOL/L (136-145)
[2017-12-14 02:27] LABS: INR 4.6 (0.9-1.1)
[2017-12-14] MEDS ORDERED: Hydrogen Peroxide 473ml Bottle TOPIC ONE ×2 (02:36→02:45)
[2017-12-14] MEDS ORDERED: MUPIROCIN22 GM TOPIC (02:40)
[2017-12-14] MEDS ORDERED: CLINDAMYCIN HC300 MG ORAL (02:40)
[2017-12-14] MEDS ORDERED: FLUCONAZOLE100 MG ORAL (02:56)
[2017-12-14] MEDS ORDERED: Acetaminophen 500mg (ES) tab ORAL ONE (03:00)
[2017-12-14 03:05] VITALS: BP 136/70
[2017-12-14 03:15] VITALS: BP 136/70
== END 2017-12-14 03:15 | disposition home or self-care (01) ==
LOC: EMR 02:24
DX: L03.115 Cellulitis of right lower limb (principal); Z79.01 Long term (current) use of anticoagulants; I10 Essential (primary) hypertension; J45.909 Unspecified asthma, uncomplicated; J44.9 Chronic obstructive pulmonary disease, unspecified
CPT/HCPCS: 36415; 80048; 85025; 85610; 96365; 96375; 99284; J2270; J2405; S0077